=== PATIENT | female | born 1995 | race Caucasian/White ===

== ENCOUNTER → 2020-02-01 11:29 | Outpatient (BNVA) | payer BC, SELFPAY | PROVIDERS: Family Provider Nurse Practitioner; PCP Nurse Practitioner; Visit Provider Nurse Practitioner | DX: Z12.4 Encounter for screening for malignant neoplasm of cervix (principal); Z11.3 Encounter for screening for infections with a predominantly sexual mode of transmission; F43.23 Adjustment disorder with mixed anxiety and depressed mood | CPT/HCPCS: 87491; 87591; 88175 ==

== ENCOUNTER → 2021-02-09 11:20 | Outpatient (BNVA) | payer BC, SELFPAY | PROVIDERS: Family Provider Nurse Practitioner; PCP Nurse Practitioner; Visit Provider Obstetrics & Gynecology | DX: Z12.4 Encounter for screening for malignant neoplasm of cervix (principal); Z30.41 Encounter for surveillance of contraceptive pills | CPT/HCPCS: 81025; 84403; 88175 ==

== ENCOUNTER 2021-05-15 14:15 | Emergency (ER) | payer BC, SELFPAY ==
--- NOTE | 2021-05-15 14:38 | XR_ITS ---
WS: [id number] Exam: XR chest 1V portable [id number] Date/Time of Exam: 05/15/2021 2:38 PM Reason For Exam: chest pain Comparison 02/24/2009. The lungs are clear and fully inflated. Normal cardiomediastinal structures. Mild dextroscoliosis of the T-spine that may be positional. XR/XR chest 1V portable [id number] IMPRESSION: 1. No acute cardiopulmonary finding.
[2021-05-15 15:31] VITALS: BP 131/85; PULSE 98; RESP 18; TEMP 37.4; O2SAT 98; BMI 25.0
[2021-05-15 15:56] LABS: Basophils # 0.1 10^3/uL (0.0-0.1); Basophils % 0.7 %; Eosinophils # 0.1 10^3/uL (0.0-0.8); Hematocrit 45.2 % (37.0-47.0); Lymphocytes # 2.1 10^3/uL (0.8-4.8); Lymphocytes % 31.6 %; Mean Corpuscular HGB Conc 33.2 g/dL (30.0-36.0); Mean Corpuscular Hemoglobin 30.3 pg (28.0-34.0); Mean Corpuscular Volume 91.3 fl (81-99); Mean Platelet Volume 9.8 fL (7.4-10.4); Monocytes # 0.3 10^3/uL (0.2-0.9); Neutrophils # 4.15 10^3/uL (1.8-7.7); Neutrophils % 61.6 %; Nucleated Red Blood Cells % 0 %; Platelet Count 228 10^3/cmm (130-400); Red Blood Count 4.95 10^6/uL (4.1-5.3); Red Cell Distribution Width 12.2 % (12.1-15.1); White Blood Count 6.8 10^3/uL (4.0-10.0)
[2021-05-15 16:35] LABS: Alanine Aminotransferase 11 U/L (0-33); Albumin Level 4.6 g/dL (3.5-5.2); Alkaline Phosphatase 65 IU/L (35-105); Anion Gap 19.9 (5-19); Aspartate Amino Transferase 13 U/L (0-32); Blood Urea Nitrogen 11 mg/dL (6-20); Calcium 9.6 mg/dL (8.5-10.5); Carbon Dioxide 20 mmol/L (22-29); Chloride 102 mmol/L (98-107); Globulin 3.4 g/dL (1.3-4.6); Glomerular Filtration Rate 87.4 mL/min (90-130); Glucose 86 mg/dL (65-115); NT Pro B Type Natriuretic Pept 9 pg/mL (0-125); Osmolality Calculated 285 mOsm/kg (285-295); Potassium 3.9 mmol/L (3.5-5.1); Sodium 138 mmol/L (136-145); Total Bilirubin 0.3 mg/dL (0.15-1.2)
[2021-05-15 16:41] LABS: Troponin T (5th) Once 6 ng/L (0-10)
[2021-05-15 17:39] VITALS: BP 120/81; PULSE 90; RESP 18; O2SAT 100
--- NOTE | 2021-05-15 17:47 | ECG_ITS ---
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 Measurements Intervals [place] Rate: 91 P: 55 MI: 121 QRS: 112 QRSD: 113 T: 65 QT: 353 QTc: 434 Interpretive Statements SINUS RHYTHM WITH SINUS ARRHYTHMIA INDETERMINATE AXIS LEFT POSTERIOR FASCICULAR BLOCK [QRS AXIS > 109, INFERIOR Q] No previous ECG available for comparison Electronically Signed On 05-15-2021 21:59:17 TANK FARM OPERATOR by Adrianna Valencia M.D. [id number]
[2021-05-15 18:02] VITALS: BP 124/85; PULSE 85; RESP 18; O2SAT 99
--- NOTE | 2021-05-15 18:07 | ED_ITS ---
HPI - Chest Pain General: Chief Complaint: Chest Pain Stated Complaint: 1st vaccine 04/27, having chest pains x 1.5wks Time Seen by Provider: 05/15/21 17:49 History of Present Illness: HPI narrative: Patient is a 26-year-old female comes to the ED with chest pain. Patient says she has been having chest pain for approximately 10 days. Patient says she got the first COVID-19 vaccine on April 27. the day after she had COVID-19 vaccination her arm was really sore and she did not feel good for that day, but then was fine the next couple days afterwards. She states the chest pain started approximately 5 days after she had COVID-19 vaccination. Chest pain is constant aching in the center of her chest. It occurs at rest or when she is up and active and exertion does not worsen symptoms. Denies any fever, chills, shortness of breath, cough, upper res piratory symptoms, abdominal pain, nausea/vomiting, bladder or bowel symptoms. Patient endorses having a history of anxiety. Her current chest pain does not seem similar to her past acute anxiety episodes. She also states that she did not want to get the COVID-19 vaccination but her work made it mandatory. Associated symptoms: Deny abdominal pain, dyspnea, fever(s), nausea, palpitations or vomiting Review of Systems Const: Denies: fever(s), chills or fatigue Eyes: Denies: change in vision or eye discomfort ENMT: Denies: throat pain, odynophagia, nasal discharge or nasal congestion Card: Reports: chest pain; Denies: palpitations, edema, swelling of feet/ankles, dyspnea on exertion or orthopnea Resp: Denies: dyspnea, productive cough or non-productive cough GI: Denies: abdominal pain, nausea, vomiting, diarrhea, constipation or hematochezia : Denies: flank pain, dysuria or hematuria Musc: Denies: neck pain, back pain or extremity swelling Skin/Breast: Denies: rash or new lesions Neuro: Denies: headache(s), numbness in extremities or weakness in extremities PFS ED PFSH: Medical History Situational mixed anxiety and depressive disorder Surgical History No history of previous surgery Family History Father Cancer Melanoma Diabetes Grandfather Chronic kidney disease (CKD) Paternal Grandmother Diabetes Paternal Grandfather Diabetes Maternal Mother Hypertension Denies family history of CAD (coronary artery disease) Hyperlipidemia Bleeding disorder Thyroid disease Stroke Social History Marital status: Single Number of children: 0 Current occupational status: employed Current occupation: [employer] Female Reproductive History: Date of last menstrual period: 01/25/20 Physical Exam Const: COMMON NORMALS: no acute distress, patient oriented x3 and alert GENERAL APPEARANCE: cooperative and comfortable HENMT: COMMON NORMALS: normocephalic HEAD & SCALP: normocephalic MOUTH: Normal oral and palatal mucosa present THROAT: posterior oropharynx normal and uvula midline Neck/C-Spine: COMMON NORMALS: supple GENERAL: Yes normal visual inspection Resp: COMMON NORMALS: normal respiratory effort, No retractions, No use of accessory muscles and clear to auscultation bilaterally AUSCULTATION: clear to auscultation bilaterally Cardio: COMMON NORMALS: regular rate, regular rhythm, S1 normal heart sound present, S2 normal heart sound present, No gallops present (Cardio), No clicks present (Cardio), No murmurs present (Cardio) and Peripheral pulses 2+ throughout RATE: regular rate RHYTHM: regular rhythm HEART SOUNDS: S1 normal heart sound present and S2 normal heart sound present PERIPHERAL PULSES: Peripheral pulses 2+ throughout GI: COMMON NORMALS: Normal to inspection, nondistended, normoactive bowel sounds present, Soft to palpation, non-tender and no masses PALPATION: Yes Soft to palpation : COMMON NORMALS: Yes no CVA tenderness BLADDER/KIDNEY EXAM: Yes no CVA tenderness Back/Pelvis: COMMON NORMALS: no CVA tenderness Extremity: COMMON NORMALS: normal to inspection Neuro: COMMON NORMALS: patient oriented x3 and moves all extremities SENSORIUM/ORIENTATION: Yes alert Skin: GENERAL SKIN EXAM: dry skin Course Vital Signs: Vital signs: Vital Signs Temperature 99.3 F 05/15/21 15:31 Pulse Rate 89 05/15/21 19:11 Respiratory Rate 18 05/15/21 19:11 Blood Pressure 118/80 05/15/21 19:11 Pulse Oximetry 98 05/15/21 19:11 MDM - Chest Pain MDM Narrative: Medical decision making narrative: Patient is a 26-year-old female comes to the ED with chest pain. She has been having the chest pain now for approximately 10 days. Chest pain is constant when there she is at rest or up and active. She stated that she did get the COVID-19 vaccinations on April 27 and 5 days later is when her chest pain started. She also has a history of anxiety. Vitals stable. Patient appears nontoxic and in no acute distress. Exam was benign. Labs unremarkable. Troponin negative. BNP-9. EKG showed normal sinus rhythm no ST segment elation depression seen. Chest x-ray showed no acute findings. Patient was diagnosed with chest pain not due to acute coronary syndrome. Her symptoms could likely be from anxiety and I offered medication to treat anxiety and patient refused it. Patient was discharged home and told to follow-up with her PCP in 7 to 10 days reevaluation. Return to ED precautions given. Patient understood agree with plan. Lab Data: Attestation: I reviewed the patient's lab results. Labs: Lab Results 05/15/21 05/15/21 05/15/21 15:45 15:45 15:45 WBC 6.8 10^3/uL 10^3/ uL (4.0-10.0) RBC 4.95 10^6/uL 10^6 /uL (4.1-5.3) Hgb 15.0 g/dL g/dL (11.5-15.3) Hct 45.2 % % (37.0-47.0) MCV 91.3 fl fl (81-99) MCH 30.3 pg pg (28.0-34.0) MCHC 33.2 g/dL g/dL (30.0-36.0) RDW 12.2 % % (12.1-15.1) Plt Count 228 10^3/cmm 10^3 /cmm (130-400) MPV 9.8 fL fL (7.4-10.4) Neut % (Auto) 61.6 % % Lymph % (Auto) 31.6 % % [place] % (Auto) 5.0 % % Eos % (Auto) 1.0 % % Baso % (Auto) 0.7 % % Neut # (Auto) 4.15 10^3/uL 10^3 /uL (1.8-7.7) Lymph # (Auto) 2.1 10^3/uL 10^3/ uL (0.8-4.8) [place] # (Auto) 0.3 10^3/uL 10^3/ uL (0.2-0.9) Eos # (Auto) 0.1 10^3/uL 10^3/ uL (0.0-0.8) Baso # (Auto) 0.1 10^3/uL 10^3/ uL (0.0-0.1) Nucleated RBC % (a uto) 0 % % Nucleated RBCs # 0.0 /100WBC /100W BC Sodium 138 mmol/L mmol/L (136-145) Potassium 3.9 mmol/L mmol/L (3.5-5.1) Chloride 102 mmol/L mmol/L (98-107) Carbon Dioxide 20 mmol/L L mmol/ L (22-29) Anion Gap 19.9 H (5-19) BUN 11 mg/dL mg/dL (6-20) Creatinine 0.8 mg/dL mg/dL (0.5-0.9) GFR Calculation 87.4 mL/min L mL/ min (90-130) Glucose 86 mg/dL mg/dL (65-115) Calculated Osmolal ity 285 mOsm/kg mOsm/ kg (285-295) Calcium 9.6 mg/dL mg/dL (8.5-10.5) Total Bilirubin 0.3 mg/dL mg/dL (0.15-1.2) AST 13 U/L U/L (0-32) ALT 11 U/L U/L (0-33) Alkaline Phosphata se 65 IU/L IU/L (35-105) Troponin T Gen 5 n g/L 6 ng/L ng/L (0-10) NT-Pro-B Natriuret Pep 9 pg/mL pg/mL (0-125) Total Protein 8.0 g/dL g/dL (6.6-8.7) Albumin 4.6 g/dL g/dL (3.5-5.2) Globulin 3.4 g/dL g/dL (1.3-4.6) Imaging Data^: CXR: Attestation: I personally reviewed and interpreted this imaging study as follows: Radiologist's impression: [facility] [facility].[place], [place] [address]HEkh ReportSigned Patient: Jannie Conway #: [id number]: 1995Acct#:[id number]/Sex: 26 / FADM Date: 05/15/21Loc: ERRoom/Bed:Attending Dr: Ordering Provider/Ordering MD: Kayla Brower Date of Service: 05/15/21 Procedure(s): XR chest 1V portable [id number] Accession Number(s): [id number] Report Number: [id number] WS: [id number] Exam: XR chest 1V portable [id number] Date/Time of Exam: 05/15/2021 2:38 PM Reason For Exam: chest pain Comparison 02/24/2009. The lungs are clear and fully inflated. Normal cardiomediastinal structures. Mild dextroscoliosis of the T-spine that may be positional. XR/XR chest 1V portable [id number] IMPRESSION: 1. No acute cardiopulmonary finding. Dictated By:Kochigned By:Kelly Alas Date/Time:05/15/21 1452DD/ 1451 EKG Data^: EKG 1: Attestation: I personally reviewed and interpreted this EKG as follows: EKG interpretation date: 05/15/21 Interpretation: Normal sinus rhythm, 91 bpm, no ST segment elevation or depression seen. Discharge Plan Discharge Patient Disposition: Home Clinical Impression: Chest pain not due to acute coronary syndrome Condition: Stable Prescriptions: New ibuprofen 800 mg tablet 800 mg PO Q8H PRN (Reason: pain) Qty: 20 RF: 0 No Action Ortho-Novum (28) 1-35 mg-mcg tablet 1 tab PO DAILY Qty: 90 RF: 5 levonorgestrel-ethinyl estrad [Aviane] 0.1-20 mg-mcg tablet 1 tab PO DAILY Qty: 28 RF: 12 Discharge Orders: Discharge ED (Routine); Ordered 05/15/21 Ordered By: Hunter Nicole Referrals: Brock Mcqueen, [facility] [Primary Care Provider] - Discharge Diet: Regular Discharge Activity: Resume usual activity Patient Instructions: Noncardiac Chest Pain (ED) Activity Restrictions/Additional Instructions: Follow-up with medical provider as directed in 5 days for reevaluation. Take medications as prescribed. Return to the ER or your medical provider if condition worsens. Please read and understand discharge instructions. Thank you for choosing [facility] for your healthcare needs today. Please realize this is an emergency room and that we are providing you with a medical screening exam and this may not be complete and all inclusive of all the testing and or work up that you may need to determine your ailment or severity of your illness. It is very important that you follow up as instructed or that you return to the Emergency Department should you have concerns or if your condition changes or worsens in any way. Coding Level of Care Code ED Supervisor Nutritional Yeast for Florentin Gallagher Exam Comprehensive
--- NOTE | 2021-05-15 18:57 | ECG_ITS ---
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 Measurements Intervals [place] Rate: 110 P: 73 OK: 104 QRS: -47 QRSD: 102 T: 68 QT: 312 QTc: 424 Interpretive Statements SINUS TACHYCARDIA WITH SHORT OK INTERVAL LEFT AXIS DEVIATION [QRS AXIS < -30] PATTERN CONSISTENT WITH PULMONARY DISEASE INTERPRETATION BASED ON A DEFAULT AGE OF 40 YEARS No previous ECG available for comparison Electronically Signed On 05-15-2021 22:14:17 GYMNASTIC COACH by Adrianna Valencia M.D. [id number]
[2021-05-15 19:11] VITALS: BP 118/80; PULSE 89; RESP 18; O2SAT 98
== END 2021-05-15 19:11 | disposition home or self-care (01) ==
PROVIDERS: Physician Assistant; Emergency Provider Physician Assistant; PCP Nurse Practitioner
DX: R07.9 Chest pain, unspecified (principal)
CPT/HCPCS: 36415; 71045; 80053; 83880; 84484; 85025; 93005; 99283

== ENCOUNTER 2021-09-14 06:43 | Outpatient (CLI) | payer BC, SELFPAY ==
--- NOTE | 2021-09-14 | USR_ITS ---
PROCEDURE INFORMATION: Exam: US Abdomen, Limited; Right Upper Quadrant Exam date and time: 09/14/2021 6:51 AM Age: 26 years old Clinical indication: Abdominal pain; Acute; Additional info: Ruq pain TECHNIQUE: Imaging protocol: US abdomen. Real time ultrasound with image documentation. Limited exam focused on the right upper quadrant. COMPARISON: No relevant prior studies available. FINDINGS: Liver: Normal. No masses. Patent main portal vein with normal direction of flow. Gallbladder: Normal. No gallstones. There is no gallbladder wall thickening. Negative sonographic Mcguire's sign. Common bile duct: Normal. No stones. No dilation. Pancreas: Visualized pancreas is unremarkable. Right kidney: Normal. No mass. No hydronephrosis. US/US abdomen limited [id number] IMPRESSION: No acute findings.
== END 2021-09-14 06:44 | disposition home or self-care (01) ==
LOC: RAD 06:43
PROVIDERS: PCP Nurse Practitioner; Visit Provider Family Medicine
DX: R10.11 Right upper quadrant pain (principal)
CPT/HCPCS: 76705

== ENCOUNTER 2021-10-23 08:55 | Outpatient (CLI) | payer BC, SELFPAY ==
[2021-10-23 09:38] LABS: HCG Qualitative Urine. Negative (Negative)
--- NOTE | 2021-10-23 10:00 | NM_ITS ---
WS: [id number] NUCLEAR MEDICINE HIDA SCAN WITH GALLBLADDER EJECTION FRACTION HISTORY: RIGHT upper quadrant pain, nausea for 3 months. COMPARISON: None available. TECHNIQUE: The patient was intravenously injected with 7.2 mCi of TC99m Mebrofenin. Immediate imaging over the right upper quadrant was followed by 5 minute image and additional images for a total of 60 minutes. Normal uptake of radiotracer throughout the liver. Activity identified in the gallbladder at 30 minutes and well distended by 60 minutes. Activity in the proximal small bowel was seen by 20 minutes. Good washout of the radiotracer from the liver by 60 minutes. The patient then drank 8 ounces of Ensure Plus. Ejection fraction at 60 minutes was 74%. Normal GB ej ection fraction is 35-75%. Post fatty meal symptoms: None. NM/NM hepatobiliary w phar* [id number] IMPRESSION: 1. Normal HIDA scan. 2. Normal gallbladder ejection fraction.
== END 2021-10-23 08:56 | disposition home or self-care (01) ==
PROVIDERS: PCP Family Medicine; Visit Provider Surgery
DX: R10.11 Right upper quadrant pain (principal)
CPT/HCPCS: 78227; 81025; A9537

== ENCOUNTER 2021-10-24 07:59 | Day surgery (SDC) | payer BC, SELFPAY ==
[2021-10-23 07:41] VITALS: BMI 25.8
[2021-10-24 08:25] VITALS: BP 136/87; PULSE 105; RESP 16; TEMP 36.6; O2SAT 99
[2021-10-24 08:36] LABS: OR HCG Qualitative Urine Negative (Negative)
[2021-10-24] MEDS: sodium chloride 0.9% 1,000 ML 30 ML IV (08:45)
--- NOTE | 2021-10-24 09:10 | P.HP_ITS ---
Same Day Surgery H&P Indication for Procedure/HPI DATE OF PROCEDURE: October 24, 2021 CHIEF COMPLAINT/INDICATIONFOR SURGICAL PROCEDURE: Epigastric pain for EGD PREOP DIAGNOSIS: upper gi symptoms PLANNED PROCEDURE: Operation Date: 10/24/21 09:45 Proposed Procedures p EGD 89557/r10.9(Not Applicable) - Sam Gaffney MD Medications/Allergies* Home Medications Medication Instructions Recorded Confirmed Type omeprazole 40 mg capsule,delayed 40 mg PO DAILY 10/23/21 10/24/21 History release Allergies/Adverse Reactions Allergy/AdvReac Type Severity Reaction Status Date / Time No Known Allergies Allergy Verified 10/15/21 08:55 Pertinent History/Comorbid Conditions* Medical History (Updated 05/23/21 @ 00:01 by ) Situational mixed anxiety and depressive disorder Surgical History (Updated 02/01/20 @ 10:58 by CARMEN Wilkes-C) No history of previous surgery Family History (Updated 02/09/21 @ 10:45 by Savannah Waldron LPN) Diabetes Father Grandmother Paternal Grandfather Maternal Chronic kidney disease (CKD) Grandfather Paternal Cancer Father Melanoma Hypertension Mother Denies family history of CAD (coronary artery disease) Hyperlipidemia Bleeding disorder Thyroid disease Stroke Social History Smoking and tobacco status: never smoked Marital status: Single Number of children: 0 Current occupational status: employed Current occupation: [employer] Pertinent Exam Findings alert, oriented x 3 and regular rate & rhythm Recommendations Surgery/Procedure today Coding Level of Care Code Acute Ear Mold Laboratory Technician for Florentin Gallagher
--- NOTE | 2021-10-24 09:31 | P.ANESASSM_ITS ---
Pre-Anesthetic Assessment Height/Weight: Height 1.68 m Weight 72.575 kg Temp Pulse Resp BP Pulse Ox 98 F 105 H 16 136/87 99 10/24/21 08:25 10/24/21 08:25 10/24/21 08:25 10/24/21 08:25 10/24/21 08:25 Preop Diagnosis: upper gi symptoms Operation Date: 10/24/21 09:45 Proposed Procedures p EGD 08506/r10.9(Not Applicable) - Sam Gaffney MD Familial anesthetic complications: None Was Beta Maty taken within 24 hours: N/A Was Clonidine taken within 24 hours: N/A Last intake: Intake Last Liquid Date 10/23/21 Last Liquid Time 22:00 Last Solid Date 10/23/21 Last Solid Time 19:00 Social No alcohol and No tobacco Exam alert, oriented x 3, clear to auscultation bilaterally and regular rate & rhythm Airway Mallampati: Class I Dentition: full Pulmonary None reported CV/HEM None reported None reported Hepatic None reported GI Gastroesophageal Reflux Disease Metabolic None reported Musc/skel None reported Neuropsych None reported Anesthetic Plan ASA status: 1 Anesthesia: MAC Medications/Allergies Home Medications Medication Instructions Recorded Confirmed Last Taken Type norethindrone 1 mg-ethinyl 1 tab PO DAILY #90 tab 02/09/21 10/24/21 10/21/21 Rx estradiol 35 mcg tablet omeprazole 40 mg capsule,delayed 40 mg PO DAILY 10/23/21 10/24/21 10/22/21 History release Allergies Allergy/AdvReac Type Severity Reaction Status Date / Time No Known Allergies Allergy Verified 10/15/21 08:55 [facility] Anesthesia Medical History Situational mixed anxiety and depressive disorder Surgical History No history of previous surgery Family History Father Cancer Melanoma Diabetes Grandfather Chronic kidney disease (CKD) Paternal Grandmother Diabetes Paternal Grandfather Diabetes Maternal Mother Hypertension Denies family history of CAD (coronary artery disease) Hyperlipidemia Bleeding disorder Thyroid disease Stroke Social History Smoking and tobacco status: never smoked Marital status: Single Number of children: 0 Current occupational status: employed Current occupation: [employer] Female Reproductive History Date of last menstrual period: 01/25/20 Data Anesthesia Cardiac Studies: No Data to Display
[2021-10-24 10:26] VITALS: BP 117/68; PULSE 101; RESP 20; TEMP 36.4; O2SAT 98
--- NOTE | 2021-10-24 13:38 | ANE.PACU2 ---
Inpatient post-anesthesia follow up: Airway intact: Yes Vital signs: Temperature 97.6 F Pulse Rate 101 Respiratory Rate 20 Blood Pressure 117/68 Pulse Oximetry 98 Oxygen Delivery Me thod Room Air Oxygen Flow Rate Fraction of Inspir ed Oxygen Hydration adequate: Yes Nausea and vomiting: No Pain level: 1 Mental status: Baseline
== END 2021-10-24 10:57 | disposition home or self-care (01) ==
PROVIDERS: Anesthesiology; PCP Family Medicine; Visit Provider Surgery
PROC: 0DJ08ZZ Inspection of Upper Intestinal Tract, Via Natural or Artificial Opening Endoscopic (ICD-10-PCS; CPT 43235; principal; 2021-10-24 09:45)
DX: R10.9 Unspecified abdominal pain (principal); K29.50 Unspecified chronic gastritis without bleeding; B96.81 Helicobacter pylori [H. pylori] as the cause of diseases classified elsewhere; K21.9 Gastro-esophageal reflux disease without esophagitis
CPT/HCPCS: 43239; 81025; 84703; 88305; J2704; J7030

== ENCOUNTER → 2021-11-28 14:41 | Outpatient (BNVA) | payer BC, SELFPAY | PROVIDERS: PCP Family Medicine; Visit Provider Nurse Practitioner Family | DX: R39.9 Unspecified symptoms and signs involving the genitourinary system (principal); B37.3 Candidiasis of vulva and vagina | CPT/HCPCS: 81000 ==

== ENCOUNTER → 2022-09-26 09:54 | Outpatient (BNVA) | payer BC, SELFPAY | PROVIDERS: PCP Family Medicine; Visit Provider Nurse Practitioner Women's Health | DX: R30.0 Dysuria (principal); N76.0 Acute vaginitis; B96.89 Other specified bacterial agents as the cause of diseases classified elsewhere | CPT/HCPCS: 81000 ==

== ENCOUNTER → 2022-10-24 13:22 | Outpatient (BNVA) | payer BC, SELFPAY | PROVIDERS: PCP Family Medicine; Visit Provider Nurse Practitioner Women's Health | DX: O21.9 Vomiting of pregnancy, unspecified (principal); Z3A.00 Weeks of gestation of pregnancy not specified | CPT/HCPCS: 81025; 84315 ==

== ENCOUNTER 2022-10-27 23:08 | Emergency (ER) | payer BC, SELFPAY ==
[2022-10-27 23:32] VITALS: BP 127/85; PULSE 93; RESP 16; TEMP 36.7; O2SAT 99
[2022-10-27 23:43] VITALS: O2SAT 99
[2022-10-27] MEDS: sodium chloride 0.9% 1,000 ML 999 ML IV (23:45)
--- NOTE | 2022-10-27 23:46 | W.ED.ABDPA2 ---
HPI - Abdominal Pain General: Chief Complaint: Abdominal Pain Stated Complaint: nausea, vomiting blood - 8 weeks Time Seen by Provider: 10/27/22 23:38 History of Present Illness: 27-year-old female comes in with nausea and vomiting. Patient noted some streaks of blood in her emesis which prompted her to come to the ER. Patient appears unwell but not toxic. Patient appears in mild pain. Patient is 8 weeks . Patient reports significant morning sickness with . This is patient's first . Patient denies any chronic medical problems. Patient reports no abnormal vaginal bleeding or discharge. Associated Symptoms: Reports nausea and vomiting; Denies fever(s) Review of Systems General: Reports: 10 or more systems reviewed and unremarkable except in HPI and below Const: Denies: fever(s) Card: Denies: chest pain Resp: Denies: dyspnea GI: Reports: nausea and vomiting : Denies: difficulty voiding or vaginal bleeding Musc: Denies: back pain Skin/Breast: Denies: rash PFSH ED PFSH: Medical History (Updated 10/28/22 @ 00:56 by CARMEN Martinez) Decreased libido Helicobacter pylori gastritis treated with abx; cleared No pertinent past medical history neghx: htn,dm,thyroid,dvt/pe PCP: Dr. Gabriel Situational mixed anxiety and depressive disorder has used medication in the past that made her nauseated or jittery; not currently taking any medication; feels this is more anxiety than depression. Surgical History H/O esophagogastroduodenoscopy (10/24/21) Family History Father Cancer Melanoma Diabetes Grandfather Chronic kidney disease (CKD) Paternal Grandmother Diabetes Paternal Grandfather Diabetes Maternal Mother Hypertension Denies family history of CAD (coronary artery disease) Hyperlipidemia Bleeding disorder Thyroid disease Stroke Social History Do you think of yourself as: Straight/Heterosexual Physical Exam Const: COMMON NORMALS: alert HENMT: COMMON NORMALS: normocephalic HEAD & SCALP: normocephalic THROAT: posterior oropharynx normal Neck/C-Spine: COMMON NORMALS: full ROM Resp: COMMON NORMALS: normal respiratory effort and clear to auscultation bilaterally AUSCULTATION: clear to auscultation bilaterally Cardio: COMMON NORMALS: regular rate and regular rhythm RATE: regular rate RHYTHM: regular rhythm GI: COMMON NORMALS: Soft to palpation and non-tender PALPATION: Yes Soft to palpation Extremity: COMMON NORMALS: normal to inspection Neuro: SENSORIUM/ORIENTATION: Yes alert Skin: COMMON NORMALS: turgor normal GENERAL SKIN EXAM: turgor normal Course Vital Signs: Vital signs: Vital Signs Temperature 98.1 F 10/27/22 23:32 Pulse Rate 72 10/28/22 00:47 Respiratory Rate 18 10/28/22 00:47 Blood Pressure 123/54 10/28/22 00:47 Pulse Oximetry 99 10/28/22 00:47 Oxygen Delivery Me thod Room Air 10/28/22 00:47 MDM - Abdominal Pain Medical Decision Making 27-year-old female comes in today with complaints of abdominal discomfort, and persistent vomiting. On exam abdomen soft with some epigastric tenderness. Posterior pharynx slightly erythematous. Skin is warm and dry. Vital signs are normal. Patient is about 8 weeks . Patient reports problems with nausea and vomiting during . Differential diagnosis includes but not limited to dehydration, gastritis, hyperemesis gravidarum. Laboratory values noted normal hemoglobin hematocrit. Sodium was 135 and potassium was 3.4, anion gap was 18. Urinalysis had ketones and was concentrated at 1.025. Patient was hydrated with 2 L of IV fluid 1 saline and 1 lactated Ringer's. Patient was given famotidine 40 mg, 12-1/2 mg of Benadryl and 25 mg of promethazine for her nausea, and 25 mg of fentanyl for her discomfort in the abdomen. No signs of severe bleeding or distress was noted. Recommended follow-up with primary care or PROCESS DEVELOPMENT MANAGER for further recommendations. Patient was prescribed promethazine suppositories for severe nausea and vomiting, and meclizine 12-1/2 mg every 4-6 hours as needed for nausea and vomiting. Patient reported understanding of care plan and need for follow-up. Lab Data 10/27/22 23:50 10/27/22 23:50 Labs/Radiology: Laboratory Results WBC 11.5 10^3/uL (4.0-10.0) H 04/30/23 23:50 RBC 4.71 10^6/uL (4.1-5.3) 10/27/22 23:50 Hgb 14.4 g/dL (11.5-15.3) 10/27/22 23:50 Hct 42.8 % (37.0-47.0) 10/27/22 23:50 MCV 90.9 fl (81-99) 10/27/22 23:50 MCH 30.6 pg (28.0-34.0) 10/27/22 23:50 MCHC 33.6 g/dL (30.0-36.0) 10/27/22 23:50 RDW 12.4 % (12.1-15.1) 10/27/22 23:50 Plt Count 219 10^3/cmm (130-400) 10/27/22 23:50 MPV 10.0 fL (7.4-10.4) 10/27/22 23:50 Neut % (Auto) 82.2 % 10/27/22 23:50 Lymph % (Auto) 14.0 % 10/27/22 23:50 [place] % (Auto) 2.9 % 10/27/22 23:50 Eos % (Auto) 0.2 % 10/27/22 23:50 Baso % (Auto) 0.4 % 10/27/22 23:50 Neut # (Auto) 9.48 10^3/uL (1.8-7.7) H 10/27/22 23:50 Lymph # (Auto) 1.6 10^3/uL (0.8-4.8) 10/27/22 23:50 [place] # (Auto) 0.3 10^3/uL (0.2-0.9) 10/27/22 23:50 Eos # (Auto) 0.0 10^3/uL (0.0-0.8) 10/27/22 23:50 Baso # (Auto) 0.1 10^3/uL (0.0-0.1) 10/27/22 23:50 Nucleated RBC % (auto) 0 % 10/27/22 23:50 Nucleated RBCs # 0.0 /100WBC 10/27/22 23:50 Sodium 135 mmol/L (136-145) L 10/27/22 23:50 Potassium 3.4 mmol/L (3.5-5.1) L 10/27/22 23:50 Chloride 100 mmol/L (98-107) 10/27/22 23:50 Carbon Dioxide 20 mmol/L (22-29) L 10/27/22 23:50 Anion Gap 18.4 (5-19) 10/27/22 23:50 BUN 6 mg/dL (6-20) 10/27/22 23:50 Creatinine 0.6 mg/dL (0.5-0.9) 10/27/22 23:50 GFR Calculation 120.8 mL/min (90-130) 10/27/22 23:50 Glucose 118 mg/dL (65-115) H 10/27/22 23:50 Calculated Osmolality 279 mOsm/kg (285-295) L 10/27/22 23:50 Calcium 10.2 mg/dL (8.5-10.5) 10/27/22 23:50 Total Bilirubin 0.4 mg/dL (0.15-1.2) 10/27/22 23:50 AST 13 U/L (0-32) 10/27/22 23:50 ALT 15 U/L (0-33) 10/27/22 23:50 Alkaline Phosphatase 58 U/L (35-105) 10/27/22 23:50 Total Protein 7.9 g/dL (6.6-8.7) 10/27/22 23:50 Albumin 4.5 g/dL (3.5-5.2) 10/27/22 23:50 Globulin 3.4 g/dL (1.3-4.6) 10/27/22 23:50 Lipase 19 U/L (13-60) 10/27/22 23:50 Ser , Semi-Qnt 310454.00 mIU/mL 10/27/22 23:50 Urine Color Yellow (Yellow) 10/28/22 00:43 Urine Appearance Hazy (CLEAR) A 10/28/22 00:43 Urine pH 6 (5-7) 10/28/22 00:43 Ur Specific [place] 1.025 (1.005-1.030) 10/28/22 00:43 Urine Protein 1+ (Negative) H 10/28/22 00:43 Urine Glucose (UA) Norm (Normal) 10/28/22 00:43 Urine Ketones 3+ (Negative) H 10/28/22 00:43 Urine Blood Neg (Negative) 10/28/22 00:43 Urine Nitrate Negative (Negative) 10/28/22 00:43 Urine Bilirubin 1+ (Negative) H 10/28/22 00:43 Urine Urobilinogen Norm mg/dL (Negative) 10/28/22 00:43 Ur Leukocyte Esterase Trace (Negative) H 10/28/22 00:43 Urine RBC None /hpf (0-2) 10/28/22 00:43 Urine WBC 0-4 /hpf (0-5) H 10/28/22 00:43 Ur Squamous Epith Cells 5-10 /hpf (0-5) H 10/28/22 00:43 Amorphous Sediment Trace /hpf 10/28/22 00:43 Urine Bacteria Trace /hpf (NONE) 10/28/22 00:43 Urine Mucus 2+ /hpf 10/28/22 00:43 Discharge Plan Discharge Patient Disposition: Home Clinical Impression: Hyperemesis gravidarum with dehydration Condition: Stable Prescriptions: New meclizine 12.5 mg tablet 12.5 mg PO QID PRN (Reason: nausea and vomiting) Qty: 60 0RF promethazine 25 mg suppository 25 mg IN Q6H PRN (Reason: nausea and vomiting) Qty: 12 0RF No Action doxylamine-pyridoxine (vit B6) [Diclegis] 10-10 mg tablet,delayed release (DR/EC) 1 tab PO .COMPLEX Qty: 120 0RF Rx Instructions: take 2 tabs at HS; 1 in the am if needed; 1 at noon if needed metoclopramide HCl [Reglan] 5 mg tablet 5 mg PO .COMPLEX Qty: 60 0RF Rx Instructions: take 1-2 tablets AC and HS prn nausea triamcinolone acetonide 0.1 % ointment 1 applic topical DAILY Qty: 30 3RF Rx Instructions: Use daily as needed for irritation Discharge Orders: Discharge ED (Routine); Ordered 10/28/22 Ordered By: Mauri Jimenez Referrals: Avery Gabriel MD [Primary Care Provider] - Discharge Diet: Advance as tolerated Patient Instructions: Hyperemesis Gravidarum (ED) Activity Restrictions/Additional Instructions: It is important to stay hydrated. Often this can be achieved with frequent sips of water or electrolyte solution. Teaspoon every 5 minutes can maintain hydration until nausea improves. Small frequent meals can often help improve nausea. Use meclizine 12-1/2 mg tablets 1 every 4-6 hours as needed to control nausea. Use promethazine suppositories 1 every 6 hours as needed for severe nausea and vomiting. Follow-up with primary care or PROCESS DEVELOPMENT MANAGER for other suggestions. Return to ER for worsening symptoms such as high fever, severe pain, or new concerns. Coding Level of Care Code ED Scanning Clerk for Florentin Gallagher
[2022-10-28] MEDS: famotidine 20 mg/2 mL INJ 40 MG IVP
[2022-10-28] MEDS: fentaNYL 50 mcg/mL INJ 2mL 25 MCG IVP (00:01)
[2022-10-28] MEDS: diphenhydrAMINE 50 mg/mL SDV 1mL 12.5 MG IVP (00:01)
[2022-10-28 00:06] LABS: Basophils # 0.1 10^3/uL (0.0-0.1); Basophils % 0.4 %; Eosinophils % 0.2 %; Hematocrit 42.8 % (37.0-47.0); Hemoglobin 14.4 g/dL (11.5-15.3); Lymphocytes # 1.6 10^3/uL (0.8-4.8); Mean Corpuscular HGB Conc 33.6 g/dL (30.0-36.0); Mean Corpuscular Hemoglobin 30.6 pg (28.0-34.0); Mean Corpuscular Volume 90.9 fl (81-99); Monocytes # 0.3 10^3/uL (0.2-0.9); Monocytes % 2.9 %; Neutrophils # 9.48 10^3/uL (1.8-7.7); Neutrophils % 82.2 %; Nucleated Red Blood Cells % 0 %; Platelet Count 219 10^3/cmm (130-400); Red Blood Count 4.71 10^6/uL (4.1-5.3); Red Cell Distribution Width 12.4 % (12.1-15.1); White Blood Count 11.5 10^3/uL (4.0-10.0)
[2022-10-28 00:37] LABS: Alanine Aminotransferase 15 U/L (0-33); Albumin Level 4.5 g/dL (3.5-5.2); Alkaline Phosphatase 58 U/L (35-105); Anion Gap 18.4 (5-19); Aspartate Amino Transferase 13 U/L (0-32); Blood Urea Nitrogen 6 mg/dL (6-20); Calcium 10.2 mg/dL (8.5-10.5); Carbon Dioxide 20 mmol/L (22-29); Chloride 100 mmol/L (98-107); Creatinine Clr Calc Pharmacy 144.9238; Globulin 3.4 g/dL (1.3-4.6); Glomerular Filtration Rate 120.8 mL/min (90-130); Glucose 118 mg/dL (65-115); Lipase 19 U/L (13-60); Osmolality Calculated 279 mOsm/kg (285-295); Potassium 3.4 mmol/L (3.5-5.1); Sodium 135 mmol/L (136-145); Total Bilirubin 0.4 mg/dL (0.15-1.2); Total Protein 7.9 g/dL (6.6-8.7)
[2022-10-28 00:47] VITALS: BP 123/54; PULSE 72; RESP 18; O2SAT 99
[2022-10-28 01:03] LABS: Bilirubin Urine 1+ (Negative); Blood Urine Neg (Negative); Glucose Urine UA Norm (Normal); Ketones Urine 3+ (Negative); Leukocyte Esterase Urine Trace (Negative); Nitrate Urine Negative (Negative); Protein Urine 1+ (Negative); Specific Gravity, Urine 1.025 (1.005-1.030); Urine Appearance Hazy (CLEAR); Urine Color Yellow (Yellow); Urobilinogen Urine Norm (Negative); pH Urine 6 (5-7)
[2022-10-28 01:04] LABS: Add Urine Culture? No; Add Urine Microscopic? YES; Amorphous Sediment Urine TRACE /hpf; Bacteria Urine TRACE /hpf; Mucus Urine 2+ /hpf; WBC Urine 0-4 /hpf (0-5)
[2022-10-28] MEDS: promethazine 25 mg/mL SDV 1 mL IM (01:12)
[2022-10-28] MEDS: lactated ringers 1,000 ML 999 ML IV (01:26)
[2022-10-28 02:12] VITALS: BP 123/54; RESP 16; O2SAT 100
== END 2022-10-28 02:15 | disposition home or self-care (01) ==
PROVIDERS: Emergency Provider Nurse Practitioner Family; PCP Family Medicine
DX: O21.0 Mild hyperemesis gravidarum (principal); Z3A.08 8 weeks gestation of pregnancy; O26.891 Other specified pregnancy related conditions, first trimester; E86.0 Dehydration
CPT/HCPCS: 80053; 81001; 83690; 84702; 85025; 96361; 96372; 96374; 96375; 99284; J1200; J2550; J3010; J3490; J7030; J7120

== ENCOUNTER → 2022-11-15 12:53 | Outpatient (BNVA) | payer BC, SELFPAY | PROVIDERS: PCP Family Medicine; Visit Provider Obstetrics & Gynecology | DX: Z34.00 Encounter for supervision of normal first pregnancy, unspecified trimester (principal) | CPT/HCPCS: 80307; 84315; 87086 ==

== ENCOUNTER → 2022-11-18 13:00 | Outpatient (BNVA) | payer BC, SELFPAY | PROVIDERS: PCP Family Medicine; Visit Provider Obstetrics & Gynecology | DX: Z34.00 Encounter for supervision of normal first pregnancy, unspecified trimester (principal) | CPT/HCPCS: 84443; 85027; 86592; 86762; 86803; 86850; 86900; 87340; 87806 ==

== ENCOUNTER → 2022-11-29 09:52 | Outpatient (BNVA) | payer BC, SELFPAY | PROVIDERS: PCP Family Medicine; Visit Provider Obstetrics & Gynecology | DX: Z34.00 Encounter for supervision of normal first pregnancy, unspecified trimester (principal); R82.90 Unspecified abnormal findings in urine | CPT/HCPCS: 84315; 87086; 87491; 87591; 87661; 88175 ==

== ENCOUNTER → 2022-12-20 11:36 | Outpatient (BNVA) | payer BC, SELFPAY | PROVIDERS: PCP Family Medicine; Visit Provider Obstetrics & Gynecology | DX: Z34.00 Encounter for supervision of normal first pregnancy, unspecified trimester (principal) | CPT/HCPCS: 84443 ==

== ENCOUNTER → 2023-02-17 12:53 | Outpatient (BNVA) | payer BC, SELFPAY | PROVIDERS: PCP Family Medicine; Visit Provider Obstetrics & Gynecology | DX: Z34.00 Encounter for supervision of normal first pregnancy, unspecified trimester (principal) | CPT/HCPCS: 76816; 84315 ==

== ENCOUNTER → 2023-03-17 13:50 | Outpatient (BNVA) | payer BC, SELFPAY | PROVIDERS: PCP Family Medicine; Visit Provider Obstetrics & Gynecology | DX: Z34.00 Encounter for supervision of normal first pregnancy, unspecified trimester (principal) | CPT/HCPCS: 82950; 84315; 85025 ==

== ENCOUNTER → 2023-03-20 11:05 | Outpatient (BNVA) | payer BC, SELFPAY | PROVIDERS: PCP Family Medicine; Visit Provider Obstetrics & Gynecology | DX: Z34.02 Encounter for supervision of normal first pregnancy, second trimester (principal) | CPT/HCPCS: 76816 ==

== ENCOUNTER → 2023-04-03 08:08 | Outpatient (BNVA) | payer BC, SELFPAY | PROVIDERS: PCP Family Medicine; Visit Provider Obstetrics & Gynecology | DX: Z34.00 Encounter for supervision of normal first pregnancy, unspecified trimester (principal) | CPT/HCPCS: 82951; 82952 ==

== ENCOUNTER → 2023-04-30 09:29 | Outpatient (BNVA) | payer BC, SELFPAY | PROVIDERS: PCP Family Medicine; Visit Provider Obstetrics & Gynecology | DX: O24.419 Gestational diabetes mellitus in pregnancy, unspecified control (principal); Z3A.35 35 weeks gestation of pregnancy | CPT/HCPCS: 76815; 76819 ==

== ENCOUNTER → 2023-05-05 12:57 | Outpatient (BNVA) | payer BC, SELFPAY | PROVIDERS: PCP Family Medicine; Visit Provider Obstetrics & Gynecology | DX: Z34.00 Encounter for supervision of normal first pregnancy, unspecified trimester (principal) | CPT/HCPCS: 76819; 84315 ==

== ENCOUNTER 2023-05-09 12:23 | Outpatient (CLI) | payer BC, SELFPAY ==
[2023-05-09] VITALS (8 sets, daily range): BP systolic 118–134; BP diastolic 69–74; PULSE 117–144; RESP 18; TEMP 36.3; O2SAT 96–98; BMI 31.8
== END 2023-05-09 13:05 | disposition home or self-care (01) ==
LOC: OPOB 12:23 → OBGYN 12:24
PROVIDERS: PCP Family Medicine; Visit Provider Obstetrics & Gynecology
DX: O24.419 Gestational diabetes mellitus in pregnancy, unspecified control (principal); Z3A.00 Weeks of gestation of pregnancy not specified
CPT/HCPCS: 59025

== ENCOUNTER → 2023-05-12 12:54 | Outpatient (BNVA) | payer BC, SELFPAY | PROVIDERS: PCP Family Medicine; Visit Provider Obstetrics & Gynecology | DX: O24.419 Gestational diabetes mellitus in pregnancy, unspecified control (principal); Z3A.36 36 weeks gestation of pregnancy | CPT/HCPCS: 76819; 84315; 87081 ==

== ENCOUNTER 2023-05-16 12:17 | Outpatient (CLI) | payer BC, SELFPAY ==
[2023-05-16 12:15] VITALS: BMI 31.9
[2023-05-16 12:27] VITALS: BP 140/74; PULSE 117
[2023-05-16 12:47] VITALS: BP 125/70; PULSE 107
[2023-05-16 12:52] VITALS: BP 125/70; PULSE 107
== END 2023-05-16 12:52 | disposition home or self-care (01) ==
LOC: OPOB 12:18 → OBGYN 12:19
PROVIDERS: Absent Provider Obstetrics & Gynecology; PCP Family Medicine; Visit Provider Obstetrics & Gynecology
DX: O24.419 Gestational diabetes mellitus in pregnancy, unspecified control (principal); Z3A.00 Weeks of gestation of pregnancy not specified
CPT/HCPCS: 59025; 99211

== ENCOUNTER → 2023-05-20 15:33 | Outpatient (BNVA) | payer BC, SELFPAY | PROVIDERS: PCP Family Medicine; Visit Provider Obstetrics & Gynecology | DX: Z34.00 Encounter for supervision of normal first pregnancy, unspecified trimester (principal) | CPT/HCPCS: 76819; 84315 ==

== ENCOUNTER → 2023-05-26 12:42 | Outpatient (BNVA) | payer BC, SELFPAY | PROVIDERS: PCP Family Medicine; Visit Provider Obstetrics & Gynecology | DX: Z34.03 Encounter for supervision of normal first pregnancy, third trimester (principal) | CPT/HCPCS: 76815; 76819 ==

== ENCOUNTER 2023-05-26 13:50 | Outpatient (CLI) | payer BC, SELFPAY ==
[2023-05-26 14:02] VITALS: BP 143/76; PULSE 113
[2023-05-26 14:03] VITALS: RESP 16; BMI 31.6
[2023-05-26 14:23] VITALS: BP 138/74; PULSE 100
== END 2023-05-26 14:29 | disposition home or self-care (01) ==
LOC: OPOB 13:54 → OBGYN 13:55
PROVIDERS: PCP Family Medicine; Visit Provider Obstetrics & Gynecology
DX: O24.419 Gestational diabetes mellitus in pregnancy, unspecified control (principal); Z3A.00 Weeks of gestation of pregnancy not specified
CPT/HCPCS: 59025; 84315; 99211

== ENCOUNTER → 2023-06-02 15:29 | Outpatient (BNVA) | payer BC, SELFPAY | PROVIDERS: PCP Family Medicine; Visit Provider Obstetrics & Gynecology | DX: Z34.03 Encounter for supervision of normal first pregnancy, third trimester (principal) | CPT/HCPCS: 76819 ==

== ENCOUNTER 2023-06-03 08:19 | Inpatient (IN) | payer BC, SELFPAY ==
[2023-06-03] VITALS (41 sets, daily range): BP systolic 113–164; BP diastolic 57–88; PULSE 72–148; RESP 16; TEMP 36.1–36.7; O2SAT 99; BMI 31.9
[2023-06-03 08:35] LABS: Glucose Point of Care 113 mg/dL (70-110)
[2023-06-03 08:48] LABS: Basophils % 0.4 %; Eosinophils # 0.1 10^3/uL (0.0-0.8); Hematocrit 40.5 % (36-47); Lymphocytes # 2.2 10^3/uL (0.8-4.8); Lymphocytes % 30.1 %; Mean Corpuscular HGB Conc 33.6 g/dL (30-55); Mean Corpuscular Hemoglobin 30.6 pg (27-33); Mean Platelet Volume 10.6 fL (7.4-10.4); Monocytes # 0.4 10^3/uL (0.2-0.9); Monocytes % 5.9 %; Neutrophils # 4.51 10^3/uL (1.8-7.7); Neutrophils % 62.3 %; Nucleated Red Blood Cells % 0 %; Platelet Count 189 10^3/cmm (157-399); Red Blood Count 4.45 10^6/uL (3.85-5.65); Red Cell Distribution Width 13.2 % (12.1-15.1); White Blood Count 7.24 10^3/uL (3.29-11.43)
--- NOTE | 2023-06-03 08:50 | P.HP_ITS ---
Providers/Chief Complaint 2 Admitting Physician: Victor M Rangel MD Primary MACHINE OPERATOR SLITTER TECHNICIAN: Victor M Rangel MD Primary Care Provider: Avery Gabriel MD Chief Complaint: INDUCTION OF LABOR FOR GDM HPI MACHINE OPERATOR SLITTER TECHNICIAN History of Present Illness 28 y.o. G1 EDC? June 07, 2023 At 39 w 3 d With GDM, on metformin 500 mg BID Now admitted for induction of labor Meds:? levothyroxine ? metformin Present Details : 1 Labs Rubella: Immune RPR: Negative GBS: Negative Medications/Allergies Home Medications Medication Instructions Recorded Confirmed Last Taken Type PNV 153-FA 400 mcg-om3 35 mg-dha 1 tab PO DAILY 10/31/22 06/02/23 06/02/23 20:00 History 25 mg-epa 5 mg-fish oil chew tablet ( Gummies) ondansetron HCl 4 mg tablet 4 mg PO Q6H #30 tabs 11/15/22 06/02/23 Unknown Rx levothyroxine 100 mcg tablet 100 mcg PO DAILY #90 tabs 11/18/22 06/02/23 06/02/23 20:00 Rx blood sugar diagnostic (Accu-Chek #10 ea 04/08/23 06/02/23 Unknown Rx Guide test strips) blood-glucose meter (Accu-Chek #1 ea 04/08/23 06/02/23 Unknown Rx Guide Glucose Meter) lancets 31 gauge (Comfort Touch #100 ea 04/08/23 06/02/23 Unknown Rx Ultra Thin Lancets) metformin 500 mg tablet See Rx Instructions .Route 05/28/23 06/02/23 06/02/23 20:00 Rx .COMPLEX #30 tabs Allergies Allergy/AdvReac Type Severity Reaction Status Date / Time No Known Allergies Allergy Verified 06/02/23 16:04 PFSH MACHINE OPERATOR SLITTER TECHNICIAN 2 PFSH: Medical History Decreased libido Helicobacter pylori gastritis treated with abx; cleared No pertinent past medical history neghx: htn,dm,thyroid,dvt/pe PCP: Dr. Gabriel Situational mixed anxiety and depressive disorder has used medication in the past that made her nauseated or jittery; not currently taking any medication; feels this is more anxiety than depression. Surgical History H/O esophagogastroduodenoscopy (10/24/21) Family History Father Cancer Melanoma Diabetes Grandfather Chronic kidney disease (CKD) Paternal Grandmother Diabetes Paternal Grandfather Diabetes Maternal Mother Hypertension Denies family history of CAD (coronary artery disease) Hyperlipidemia Bleeding disorder Thyroid disease Stroke History History History 2 1 Term 0 Miscarriages/Ectopic Living Children Care JENNIFER Calculator 2 Estimated Delivery Date Method Current WG Current Estimate 06/07/23 LMP (Certain) 39w 4d Other Estimates 06/13/23 Ultrasound #1 38w 5d Specific Issues/Plans * N/V * ANXIETY Vitals/I&O/Wt Last Vital Signs Temp 97.5 F L 06/04/23 00:37 Pulse 80 06/04/23 07:18 Resp 16 06/03/23 08:35 BP 131/72 06/04/23 07:18 Pulse Ox 99 06/03/23 22:10 O2 Del Method Room Air 06/04/23 07:20 06/03/23 06/04/23 06/04/23 22:59 06:59 14:59 Intake Total 1385.467 / 1385.467 144.217 / 1529.684 Balance 1385.467 / 1385.467 144.217 / 1529.684 Weight last 48 hrs Weight 198 lb Weight 198 lb Physical Exam 2 Narrative: Weight? 196 ?lbs;? 5?6? VS? normal Comfortable, awake, alert Lungs:? clear Cor:? RRR Abd:? nontender FH? 37? cm,? cephalic Cervix:? 1 cm / 75% / -3 / posterior Ext:? normal External monitor:? heart tracing good variability,? + accelerations Urinary Catheter Management: Alejandre: Cath Placed During This Visit: yes Reason for Continuing Indwelling Catheter: Accurate Measurement of Urinary Output in Critically Ill Patients Urinary Catheter Date of Insertion: 06/03/23 Urinary Catheter Time of Insertion: 22:58 Data 06/03/23 08:20 Results Labs OB ([facility]): 2 Obstetrics US 03/20/23 Obstetrics US/Biophysical Profile Blood Type A Positive 06/03/23 Antibody Screen Negative 06/03/23 Hct 40.5 % (36-47) 06/03/23 Hgb 13.60 g/dL (11.27-16.99) 06/03/23 Rho(D) Type Rh positive 06/03/23 Plt Count 189 10^3/cmm (157-399) 06/03/23 Hep Bs Antigen Non-reactive (Nonreactive) 11/18/22 Hepatitis C Antibody Non-reactive (Nonreactive) 11/18/22 Rubella IgG Antibody 435.1 IU/mL (0.0-10.0) H 11/18/22 RPR Nonreactive (Nonreactive) 11/18/22 HIV 1&2 Ab & HIV 1 Ag Non-reactive (Non-Reactiv) 11/18/22 TSH 1.89 uIU/mL (0.27-4.20) 12/20/22 C.trachomatis RNA (TMA) Not detected (NOT DETECTED) N.gonorrhoeae RNA (TMA) Not detected (NOT DETECTED) T. vaginalis Amp RNA Not detected (NOT DETECTED) 11/29/22 Chlamydia/GC Comment See note 11/29/22 Gest Glucose Tolerance mg/dL 04/03/23 Ser , Semi-Qnt 803320.00 mIU/mL 10/27/22 HCG, Qual Positive (Negative) H 10/24/22 Urine Opiates Screen Negative ng/mL (Negative) 11/15/22 Ur Barbiturates Screen Negative ng/mL (Negative) 11/15/22 Ur Phencyclidine Scrn Negative ng/mL (Negative) 11/15/22 Ur Amphetamines Screen Negative ng/mL (Negative) 11/15/22 U Benzodiazepines Scrn Negative ng/mL (Negative) 11/15/22 Urine Cocaine Screen Negative ng/mL (Negative) 11/15/22 U Marijuana (THC) Screen Negative ng/mL (Negative) 11/15/22 Micro Urine Specimen 11/29/22 Pap Smear Interpret See note 11/29/22 A&P Assessment and plan (1) Supervision of normal first : 39 w 3 d (2) Gestational diabetes: Admit for induction of labor Plan Cytotec 25 ug intravaginal Attestations 2 Medical Necessity Statement*: patient at 39 w 3 d with gestational diabetes on metformin, admitted for labor induction Coding Level of Care Code Acute Code for Chg Fwd Diagnoses Supervision of normal first Z34.00 Gestational diabetes O24.419 Time Spent (min) 30
[2023-06-03] MEDS: miSOPROStol 100 mcg tablet 25 MCG VAGINAL (08:54)
--- NOTE | 2023-06-03 13:45 | P.PN_ITS ---
CHAINSTITCH TUNNEL ELASTIC OPERATOR Subjective 2 Subjective: Interval history: June 03, 2023, 1345 Fetus reassuring Feeling UCs, 2-3 / 10 mins Cx: 1 cm / -3 / posterior Labor: Station: +1 Amniotic Membrane Status: Ruptured Monitor Mode: External Contraction Pattern: Regular Vitals/I&O/Wt Last Vital Signs Temp 97.5 F L 06/04/23 19:32 Pulse 88 06/05/23 00:52 Resp 16 06/04/23 08:35 BP 132/87 06/05/23 00:52 Pulse Ox 98 06/04/23 23:57 O2 Del Method Room Air 06/04/23 08:50 06/04/23 06/04/23 06/05/23 14:59 22:59 06:59 Intake Total 108.516 / 552.332 1667 / 1208.516 120.133 / 1328.649 Output Total 1999 Balance -1891.484 / -0178.305 6653 / -791.484 120.133 / -671.351 Weight last 48 hrs Weight 198 lb Weight 198 lb Physical Exam 2 Urinary Catheter Management: Alejandre: Cath Placed During This Visit: yes Reason for Continuing Indwelling Catheter: Accurate Measurement of Urinary Output in Critically Ill Patients Urinary Catheter Date of Insertion: 06/03/23 Urinary Catheter Time of Insertion: 22:58 Data 06/03/23 08:20 A&P Assessment and plan (1) Supervision of normal first : 39 w 3 d (2) Gestational diabetes: admitted for induction of labor received one dose of cytotec 25 ug intravaginal Attestations 2 Medical Necessity Statement*: patient at 39 w 3 d, with gestational diabetes, admitted for labor induction Coding Level of Care Code Acute Code for Chg Fwd Diagnoses Supervision of normal first Z34.00 Gestational diabetes O24.419 Time Spent (min) 20
[2023-06-03] MEDS: oxytocin 30 UNIT/500 ML BAG IV (18:20)
[2023-06-03] MEDS: dextrose 5%-lactated ringers 1,000 ML 125 ML IV (18:20)
[2023-06-03] MEDS: lactated ringers 1,000 ML 999 ML IV (21:00)
[2023-06-03] MEDS: ROPivacaine syringe 100 MG/50 ML SYRINGE 10 MG EPIDURAL (22:15)
--- NOTE | 2023-06-03 22:15 | P.ANESASSM_ITS ---
Pre-Anesthetic Assessment Height/Weight: Height 1.68 m Weight 89.811 kg Temp Pulse Resp BP Pulse Ox O2 Del Method 97.9 F 97 16 147/69 99 Room Air 06/03/23 18:23 06/03/23 22:10 06/03/23 08:35 06/03/23 22:10 06/03/23 22:10 06/03/23 08:00 epidural Familial anesthetic complications: none Was Beta Maty taken within 24 hours: N/A Was Clonidine taken within 24 hours: N/A Social No alcohol and No tobacco Exam alert and oriented x 3 Airway Submandibular: within normal limits Cervical ROM: within normal limits Mallampati: Class II Dentition: full History/ROS No significant history except as noted Metabolic Diabetes Mellitus (gestational only) Anesthetic Plan ASA status: 2 Anesthesia: Anesthesia Evaluation and Regional (specify below) Risk of > 500 ml blood loss (7ml/kg in children): No Medications/Allergies Home Medications Medication Instructions Recorded Confirmed Last Taken Type PNV 153-FA 400 mcg-om3 35 mg-dha 1 tab PO DAILY 10/31/22 06/02/23 06/02/23 20:00 History 25 mg-epa 5 mg-fish oil chew tablet ( Gummies) ondansetron HCl 4 mg tablet 4 mg PO Q6H #30 tabs 11/15/22 06/02/23 Unknown Rx levothyroxine 100 mcg tablet 100 mcg PO DAILY #90 tabs 11/18/22 06/02/23 06/02/23 20:00 Rx blood sugar diagnostic (Accu-Chek #10 ea 04/08/23 06/02/23 Unknown Rx Guide test strips) blood-glucose meter (Accu-Chek #1 ea 04/08/23 06/02/23 Unknown Rx Guide Glucose Meter) lancets 31 gauge (Comfort Touch #100 ea 04/08/23 06/02/23 Unknown Rx Ultra Thin Lancets) metformin 500 mg tablet See Rx Instructions .Route 05/28/23 06/02/23 06/02/23 20:00 Rx .COMPLEX #30 tabs Allergies Allergy/AdvReac Type Severity Reaction Status Date / Time No Known Allergies Allergy Verified 06/02/23 16:04 Current Medications Generic Name Dose Route Start Last Admin Trade Name Freq PRN Reason Stop Dose Admin Dextrose/Lactated Ringer's 1,000 mls @ 125 mls/hr 06/03/23 08:45 06/03/23 18:20 Dextrose 5%-Lactated Ringers IV 125 mls/hr .Q8H CAROLEE Administration Oxytocin 30 unit in 500 mls @ 1 mls/hr 06/03/23 17:45 06/03/23 19:48 Pitocin IV 6 milliunit/min .Q24H CAROLEE 6 mls/hr Titration Protocol 1 MILLIUNIT/MIN Lactated Ringer's 1,000 mls @ 999 mls/hr 06/03/23 20:47 06/03/23 21:00 Lactated Ringers IV 999 mls/hr .Q1H1M PRN Administration See label comments PFSH Anesthesia Medical History Decreased libido Helicobacter pylori gastritis treated with abx; cleared No pertinent past medical history neghx: htn,dm,thyroid,dvt/pe PCP: Dr. Gabriel Situational mixed anxiety and depressive disorder has used medication in the past that made her nauseated or jittery; not currently taking any medication; feels this is more anxiety than depression. Surgical History H/O esophagogastroduodenoscopy (10/24/21) Family History Father Cancer Melanoma Diabetes Grandfather Chronic kidney disease (CKD) Paternal Grandmother Diabetes Paternal Grandfather Diabetes Maternal Mother Hypertension Denies family history of CAD (coronary artery disease) Hyperlipidemia Bleeding disorder Thyroid disease Stroke Female Reproductive History : 1 Data Anesthesia 06/03/23 08:20 Short CBC 06/03/23 Range/Units 08:20 WBC 7.24 (3.29-11.43) 10^3/uL Hgb 13.60 (11.27-16.99) g/dL Hct 40.5 (36-47) % MCV 91.0 (85-98) fl Plt Count 189 (157-399) 10^3/cmm Neut % (Auto) 62.3 % Neut # (Auto) 4.51 (1.8-7.7) 10^3/uL Blood Bank 06/03/23 08:20 Blood Type A Positive Rho(D) Type Rh positive Antibody Screen Negative Cardiac Studies: 2 No Data to Display Anesthesia Procedures Epidural Time Out Performed: Yes Consents Signed: Procedure Consent Consent: from patient, risks and benefits reviewed and patient agrees to proceed Lumbar Level: L3-L4 Epidural position: sitting Epidural procedure: sterile prep of area, 1% lidocaine to numb the area, 18 g needle, negative for paresthesia passed, neg for paresthesia, test dose given, 1.5% xylocaine 1:200k epi, placed PCEA, no systemic response, sterile dressing applied, L.U.D. no apparent complications and 0.2% Ropiavacaine @ mls/hr (10) Additional Comments: GUSTAVO at 5, taped at 12 at skin. negative blood/CSF upon apsiration.
[2023-06-03] MEDS: lactated ringers 1,000 ML 125 ML IV (22:17)
[2023-06-04] VITALS (223 sets, daily range): BP systolic 100–172; BP diastolic 53–101; PULSE 42–160; RESP 16; TEMP 35.2–36.6; O2SAT 91–100
--- NOTE | 2023-06-04 02:05 | P.PN_ITS ---
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516 / 978.178 2804 / 1208.516 120.133 / 1328.649 Output Total 1999 Balance -1891.484 / -7409.470 2947 / -791.484 120.133 / -671.351 Weight last 48 hrs Weight 198 lb Weight 198 lb Physical Exam 2 Urinary Catheter Management: Alejandre: Cath Placed During This Visit: yes Reason for Continuing Indwelling Catheter: Accurate Measurement of Urinary Output in Critically Ill Patients Urinary Catheter Date of Insertion: 06/03/23 Urinary Catheter Time of Insertion: 22:58 Data 06/03/23 08:20 A&P Assessment and plan (1) Supervision of normal first : 39 w 4 d (2) Gestational diabetes: admitted for induction of labor Attestations 2 Medical Necessity Statement*: patient at 39 w 4 d, with gestational diabetes, admitted for induction of labor Coding Level of Care Code Acute Code for Chg Fwd Diagnoses Supervision of normal first Z34.00 Gestational diabetes O24.419 Time Spent (min) 20
[2023-06-04] MEDS: ROPivacaine syringe 100 MG/50 ML SYRINGE 10 MG EPIDURAL ×8 (02:11→23:35)
[2023-06-04] MEDS: lactated ringers 1,000 ML 999 ML IV (02:58)
--- NOTE | 2023-06-04 04:20 | P.PN_ITS ---
DIRECT RESPONSE CONSULTANT Subjective 2 Subjective: Interval history: June 04, 2023, 0420 Had episode of late decelerations Pitocin was turned off Presently fetus reassuring Cx: 2-3 cm / -3 / anterior Labor: Station: +1 Amniotic Membrane Status: Ruptured Monitor Mode: External Contraction Pattern: Regular Vitals/I&O/Wt Last Vital Signs Temp 97.5 F L 06/04/23 19:32 Pulse 95 06/05/23 01:22 Resp 16 06/04/23 08:35 BP 146/87 06/05/23 01:22 Pulse Ox 98 06/04/23 23:57 O2 Del Method Room Air 06/04/23 08:50 06/04/23 06/04/23 06/05/23 14:59 22:59 06:59 Intake Total 108.516 / 795.043 8917 / 1208.516 120.133 / 1328.649 Output Total 1999 / 1999 800 / 2800 300 / 3100 Balance -1891.484 / -1891.484 300 / -1591.484 -179.867 / -1771.351 Weight last 48 hrs Weight 198 lb Weight 198 lb Physical Exam 2 Urinary Catheter Management: Alejandre: Cath Placed During This Visit: yes, but has since been removed by the nurse Reason for Continuing Indwelling Catheter: Decision to DC Catheter Urinary Catheter Date of Insertion: 06/03/23 Urinary Catheter Time of Insertion: 22:58 Date Urinary Catheter Removed: 06/04/23 Time Urinary Catheter Discontinued: 21:34 Data 06/03/23 08:20 A&P Assessment and plan (1) Supervision of normal first : 39 w 4 d (2) Gestational diabetes: admitted for labor induction Attestations 2 Medical Necessity Statement*: patient at 39 w 4 d, with gestational diabetes, admitted for induction of labor Coding Level of Care Code Acute Code for Chg Fwd Diagnoses Supervision of normal first Z34.00 Gestational diabetes O24.419 Time Spent (min) 20
[2023-06-04] MEDS: dextrose 5%-lactated ringers 1,000 ML 125 ML IV ×2 (10:09→18:12)
--- NOTE | 2023-06-04 10:10 | P.PN_ITS ---
DIRECTOR MEDIA Subjective 2 Subjective: Interval history: June 04, 2023, 1010 Fetus reassuring Comfortable with epidural Cx: 2 cm / 90% / -2 AROM, clear fluid Re-start Pitocin per protocol Labor: Station: +1 Amniotic Membrane Status: Ruptured Monitor Mode: External Contraction Pattern: Regular Vitals/I&O/Wt Last Vital Signs Temp 97.5 F L 06/04/23 19:32 Pulse 98 06/05/23 01:37 Resp 16 06/04/23 08:35 BP 151/92 06/05/23 01:37 Pulse Ox 98 06/04/23 23:57 O2 Del Method Room Air 06/04/23 08:50 06/04/23 06/04/23 06/05/23 14:59 22:59 06:59 Intake Total 108.516 / 256.999 2214 / 1208.516 120.133 / 1328.649 Output Total 1999 / 1999 800 / 2800 300 / 3100 Balance -1891.484 / -1891.484 300 / -1591.484 -179.867 / -1771.351 Weight last 48 hrs Weight 198 lb Weight 198 lb Physical Exam 2 Urinary Catheter Management: Alejandre: Cath Placed During This Visit: yes, but has since been removed by the nurse Reason for Continuing Indwelling Catheter: Decision to DC Catheter Urinary Catheter Date of Insertion: 06/03/23 Urinary Catheter Time of Insertion: 22:58 Date Urinary Catheter Removed: 06/04/23 Time Urinary Catheter Discontinued: 21:34 Data 06/03/23 08:20 A&P Assessment and plan (1) Supervision of normal first : 39 w 4 d (2) Gestational diabetes: admitted for induction of labor Attestations 2 Medical Necessity Statement*: patient at 39 w 4 d with gestational diabetes, admitted for induction of labor Coding Level of Care Code Acute Code for Chg Fwd Diagnoses Supervision of normal first Z34.00 Gestational diabetes O24.419 Time Spent (min) 20
--- NOTE | 2023-06-04 13:17 | PM.MISC ---
Miscellaneous Note Purpose of Documentation: Epidural Bolus Note: Epidural bolused with 100mcg fentanyl and 5mls of 2% lido.
[2023-06-04] MEDS: hyDROXYzine 25 mg Capsule 50 MG PO (15:40)
--- NOTE | 2023-06-04 16:50 | PM.MISC ---
Miscellaneous Note Purpose of Documentation: Epidural Bolus Note: Patient c/o of cont'd discomfort, bolused with 5mls of 0.25% bup. (@ approx 1500)
--- NOTE | 2023-06-04 16:51 | P.MISC_ITS ---
Miscellaneous Note Purpose of Documentation: Epidural replaced Note: Previous bolus (0.25% bup at 1500) not helpful, choice made to replace epidural. Sitting position, sterile prep, drape and glove, GUSTAVO @ 5cm, cath @ 10cm, test dose of 100mcg fent and 5mls of 2% lido was ++. Awaited symptoms to [facility] and retested with 1.5%lido/epi and still++, catheter pulled back 3cm to 7cm with negative test dose. Slowly bolused 5mls of 0.2% rop with no issues pump start ed.
[2023-06-04] MEDS: ondansetron 2 mg/ML SDV 2 mL 4 MG IVP (16:55)
--- NOTE | 2023-06-04 20:10 | P.PN_ITS ---
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 Subjective: Interval history: June 04, [id number] Fetus reassuring Cx: complete / -2 station Will allow fetus to descend Labor: Station: +1 Amniotic Membrane Status: Ruptured Monitor Mode: External Contraction Pattern: Regular Vitals/I&O/Wt Last Vital Signs Temp 97.5 F L 06/04/23 19:32 Pulse 98 06/05/23 01:37 Resp 16 06/04/23 08:35 BP 151/92 06/05/23 01:37 Pulse Ox 98 06/04/23 23:57 O2 Del Method Room Air 06/04/23 08:50 06/04/23 06/04/23 06/05/23 14:59 22:59 06:59 Intake Total 108.516 / 047.621 7666 / 1208.516 120.133 / 1328.649 Output Total 1999 / 1999 800 / 2800 300 / 3100 Balance -1891.484 / -1891.484 300 / -1591.484 -179.867 / -1771.351 Weight last 48 hrs Weight 198 lb Weight 198 lb Physical Exam 2 Urinary Catheter Management: Alejandre: Cath Placed During This Visit: yes, but has since been removed by the nurse Reason for Continuing Indwelling Catheter: Decision to DC Catheter Urinary Catheter Date of Insertion: 06/03/23 Urinary Catheter Time of Insertion: 22:58 Date Urinary Catheter Removed: 06/04/23 Time Urinary Catheter Discontinued: 21:34 Data 06/03/23 08:20 A&P Assessment and plan (1) Supervision of normal first : 39 w 4 d (2) Gestational diabetes: admitted for induction of labor Attestations 2 Medical Necessity Statement*: patient at 39 w 4 d, admitted for induction of labor due to gestational diabetes Coding Level of Care Code Acute Code for Chg Fwd Diagnoses Supervision of normal first Z34.00 Gestational diabetes O24.419 Time Spent (min) 20
[2023-06-04] MEDS: lidocaine 2% INJ 20 mL INJECTION (23:48)
--- NOTE | 2023-06-04 23:50 | P.PN_ITS ---
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 Subjective: Interval history: June 04, 2023, 2350 DELIVERY NOTE , vigorous male infant Normal placenta and cord Cord gases and blood obtained Second-degree perineal laceration repaired EBL: 300 cc No complications Labor: Station: +1 Amniotic Membrane Status: Ruptured Monitor Mode: External Contraction Pattern: Regular Vitals/I&O/Wt Last Vital Signs Temp 97.5 F L 06/04/23 19:32 Pulse 98 06/05/23 01:37 Resp 16 06/04/23 08:35 BP 151/92 06/05/23 01:37 Pulse Ox 98 06/04/23 23:57 O2 Del Method Room Air 06/04/23 08:50 06/04/23 06/04/23 06/05/23 14:59 22:59 06:59 Intake Total 108.516 / 227.341 7504 / 1208.516 120.133 / 1328.649 Output Total 2000 / 2000 800 / 2800 300 / 3100 Balance -1891.484 / -1891.484 300 / -1591.484 -179.867 / -1771.351 Weight last 48 hrs Weight 198 lb Weight 198 lb Physical Exam 2 Urinary Catheter Management: Alejandre: Cath Placed During This Visit: yes, but has since been removed by the nurse Reason for Continuing Indwelling Catheter: Decision to DC Catheter Urinary Catheter Date of Insertion: 06/03/23 Urinary Catheter Time of Insertion: 22:58 Date Urinary Catheter Removed: 06/04/23 Time Urinary Catheter Discontinued: 21:34 Data 06/03/23 08:20 A&P Assessment and plan (1) Supervision of normal first : (2) Gestational diabetes: (3) Vaginal delivery: (4) Second degree perineal laceration: Attestations 2 Medical Necessity Statement*: patient at 39 w 4 d with gestational diabetes, admitted for induction of labor, now s/p vaginal delivery Coding Level of Care Code Acute Code for Chg Fwd Diagnoses Supervision of normal first Z34.00 Gestational diabetes O24.419 Vaginal delivery O80 Second degree perineal laceration O70.1 Time Spent (min) 120
--- NOTE | 2023-06-04 23:50 | PM.DELIVERY ---
Delivery Note: Date of delivery: June 04, 2023 Pre-delivery diagnoses: 39 w 4 d gestational diabetes induction of labor Post-delivery diagnoses: 39 w 4 d gestational diabetes induction of labor vaginal delivery repair of second-degree perineal laceration Procedure: vaginal delivery repair of second-degree perineal laceration Delivering Physician: Victor M Rangel MD Estimated blood loss (mL): 300 Findings: , vigorous male infant Normal placenta and cord Cord gases and blood obtained Second-degree perineal laceration repaired EBL: 300 cc No complications Pre-Delivery Course: normal labor course Delivery: vaginal Post-Delivery Status: good History History History 1 Term 0 Miscarriages/Ectopic Living Children A&P Assessment and plan (1) Vaginal delivery: care (2) Second degree perineal laceration: repaired Coding Level of Care Code Acute Code for Chg Fwd Diagnoses Vaginal delivery O80 Second degree perineal laceration O70.1 Time Spent (min) 120
[2023-06-05] VITALS (17 sets, daily range): BP systolic 105–151; BP diastolic 64–92; PULSE 81–110; RESP 16; TEMP 36.6–36.9; O2SAT 97–98
[2023-06-05] MEDS: acetaminophen 325 mg Tablet 650 MG PO (01:17)
--- NOTE | 2023-06-05 08:15 | ANE.PACU2 ---
Inpatient post-anesthesia follow up: Airway intact: Yes Vital signs: Temperature 98.3 F Pulse Rate 90 Respiratory Rate 16 Blood Pressure 105/69 Pulse Oximetry 97 Oxygen Delivery Me thod Room Air Oxygen Flow Rate Fraction of Inspir ed Oxygen Hydration adequate: Yes Nausea and vomiting: No Pain level: 2 Mental status: Baseline Additional Comments: Anes start 06/03/232151 Anes end 06/04/23 9107
[2023-06-05] MEDS: ibuprofen 800 mg tablet PO ×3 (08:26→20:25)
[2023-06-05] MEDS: docusate sodium 100 mg Capsule PO ×2 (08:26→18:39)
[2023-06-05] MEDS: prenatal vitamin Capsule 1 CAP PO (08:44)
[2023-06-05 13:11] LABS: Hematocrit 36.6 % (36-47); Mean Corpuscular HGB Conc 33.3 g/dL (30-55); Mean Corpuscular Hemoglobin 30.6 pg (27-33); Mean Corpuscular Volume 91.7 fl (85-98); Mean Platelet Volume 10.2 fL (7.4-10.4); Platelet Count 149 10^3/cmm (157-399); Red Blood Count 3.99 10^6/uL (3.85-5.65); Red Cell Distribution Width 13.5 % (12.1-15.1); White Blood Count 16.85 10^3/uL (3.29-11.43)
[2023-06-05] MEDS: benzocaine-menthol 78 gm Canister 1 SPRAY TOPICAL (21:45)
[2023-06-06 04:02] VITALS: BP 121/79; PULSE 78; RESP 16; TEMP 36.8; O2SAT 99
[2023-06-06] MEDS: docusate sodium 100 mg Capsule PO (09:31)
[2023-06-06] MEDS: ibuprofen 800 mg tablet PO (09:31)
[2023-06-06] MEDS: prenatal vitamin Capsule 1 CAP PO (09:31)
[2023-06-06 09:36] VITALS: BP 116/81; PULSE 87; RESP 17; TEMP 37
[2023-06-06 12:35] VITALS: BP 136/4; PULSE 116; RESP 17
[2023-06-06 12:45] VITALS: BP 136/4; PULSE 116; RESP 17
--- NOTE | 2023-06-06 14:44 | PM.OBGYPN ---
[employer] DR[employer] Subjective Subjective: Interval history: no c/o no bleeding, pain eating, voiding, ambulating well caring for without any problems Labor: Station: +1 Amniotic Membrane Status: Ruptured Monitor Mode: External Contraction Pattern: Regular Vitals/I&O/Wt Last Vital Signs Temp 98.6 F 06/06/23 09:36 Pulse 87 06/06/23 09:36 Resp 17 06/06/23 09:36 BP 116/81 06/06/23 09:36 Pulse Ox 99 06/06/23 04:02 O2 Del Method Room Air 06/05/23 20:29 Physical Exam Narrative: afebrile, VS normal comfortable, awake, alert Abd:? soft, nontender.? fundus firm Ext:? no edema;? nontender Urinary Catheter Management: Alejandre: Cath Placed During This Visit: yes, but has since been removed by the nurse Reason for Continuing Indwelling Catheter: Decision to DC Catheter Urinary Catheter Date of Insertion: 06/03/23 Urinary Catheter Time of Insertion: 22:58 Date Urinary Catheter Removed: 06/04/23 Time Urinary Catheter Discontinued: 21:34 Data 06/05/23 13:02 A&P Assessment and plan (1) Vaginal delivery: PPD #1? doing well ? discharge home today ? instructions and precautions given call/return if fever, chills, headache, blurry vision, nausea, vomiting, abdominal pain; vaginal bleeding or discharge; shortness of breath, chest pain, leg pains or swelling; inability to void, perineal pain or swelling; feelings of depression or mood changes; thoughts of suicide or harming others; inability to care for baby. f/u in 6 weeks or PRN Attestations Medical Necessity Statement*: patient s/p , plan discharge home today Coding Level of Care Code Acute Code for Chg Fwd Diagnoses Vaginal delivery O80 Time Spent (min) 20
--- NOTE | 2023-06-06 14:47 | PM.OBGYDC ---
Discharge Providers FAN MAIL EDITOR Date of Admission: 06/03/23 08:19 Date of Discharge: 06/06/23 Attending Provider at Admission: Victor M Rangel MD Attending Provider at Discharge: Victor M Rangel MD Consults: none Primary FAN MAIL EDITOR: Victor M Rangel MD Primary Care Provider: Avery Gabriel MD Diagnoses at Discharge Discharge Diagnosis (1) Vaginal delivery: Details from hospital stay: patient underwent induction of labor at 39 w 3 d due to gestational diabetes had normal labor course s/p vaginal delivery and repair of second-degree perineal laceration did well Status: Acute Reason for Visit Reason for Visit: INDUCTION OF LABOR FOR GDM Brief History: patient underwent induction of labor at 39 w 3 d due to gestational diabetes Hospital Course Hospital Course had normal labor course s/p vaginal delivery and repair of second-degree perineal laceration did well Information Peripartum Data: Infant Delivery Method: Vaginal Laceration description: Perineal - 2nd Degree Episiotomy description: None complications: none Physical Exam Narrative: afebrile, VS normal comfortable, awake, alert Abd:? soft, nontender.? fundus firm Ext:? no edema;? nontender Urinary Catheter Management: Alejandre: Cath Placed During This Visit: yes, but has since been removed by the nurse Reason for Continuing Indwelling Catheter: Decision to DC Catheter Urinary Catheter Date of Insertion: 06/03/23 Urinary Catheter Time of Insertion: 22:58 Date Urinary Catheter Removed: 06/04/23 Time Urinary Catheter Discontinued: 21:34 History History History 1 Term 0 Miscarriages/Ectopic Living Children Discharge Data Studies Completed and Pending Laboratory Results WBC 16.85 10^3/uL (3.29-11.43) H 06/05/23 13:02 RBC 3.99 10^6/uL (3.85-5.65) 06/05/23 13:02 Hgb 12.20 g/dL (11.27-16.99) 06/05/23 13:02 Hct 36.6 % (36-47) 06/05/23 13:02 MCV 91.7 fl (85-98) 06/05/23 13:02 MCH 30.6 pg (27-33) 06/05/23 13:02 MCHC 33.3 g/dL (30-55) 06/05/23 13:02 RDW 13.5 % (12.1-15.1) 06/05/23 13:02 Plt Count 149 10^3/cmm (157-399) L 06/05/23 13:02 MPV 10.2 fL (7.4-10.4) 06/05/23 13:02 Neut % (Auto) 62.3 % 06/03/23 08:20 Lymph % (Auto) 30.1 % 06/03/23 08:20 Maries % (Auto) 5.9 % 06/03/23 08:20 Eos % (Auto) 1.0 % 06/03/23 08:20 Baso % (Auto) 0.4 % 06/03/23 08:20 Neut # (Auto) 4.51 10^3/uL (1.8-7.7) 06/03/23 08:20 Lymph # (Auto) 2.2 10^3/uL (0.8-4.8) 06/03/23 08:20 Maries # (Auto) 0.4 10^3/uL (0.2-0.9) 06/03/23 08:20 Eos # (Auto) 0.1 10^3/uL (0.0-0.8) 06/03/23 08:20 Baso # (Auto) 0.0 10^3/uL (0.0-0.1) 06/03/23 08:20 Nucleated RBC % (auto) 0 % 06/03/23 08:20 Nucleated RBCs # 0.0 /100WBC 06/03/23 08:20 POC Glucose 113 mg/dL (70-110) H 06/03/23 08:26 Blood Type A Positive 06/03/23 08:20 Rho(D) Type Rh positive 06/03/23 08:20 Antibody Screen Negative 06/03/23 08:20 Procedures Performed labor induction vaginal delivery repair of second-degree perineal laceration Vitals Last Vital Signs Temp 98.6 F 06/06/23 09:36 Pulse 87 06/06/23 09:36 Resp 17 06/06/23 09:36 BP 116/81 06/06/23 09:36 Pulse Ox 99 06/06/23 04:02 O2 Del Method Room Air 06/05/23 20:29 Results Labs OB ([facility]): Obstetrics US 03/20/23 Obstetrics US/Biophysical Profile 06/02/23 Blood Type A Positive 06/03/23 Antibody Screen Negative 06/03/23 Hct 36.6 % (36-47) 06/05/23 Hgb 12.20 g/dL (11.27-16.99) 06/05/23 Rho(D) Type Rh positive 06/03/23 Plt Count 149 10^3/cmm (157-399) L 06/05/23 Hep Bs Antigen Non-reactive (Nonreactive) 11/18/22 Hepatitis C Antibody Non-reactive (Nonreactive) 11/18/22 Rubella IgG Antibody 435.1 IU/mL (0.0-10.0) H 11/18/22 RPR Nonreactive (Nonreactive) 11/18/22 HIV 1&2 Ab & HIV 1 Ag Non-reactive (Non-Reactiv) 11/18/22 TSH 1.89 uIU/mL (0.27-4.20) 12/20/22 C.trachomatis RNA (TMA) Not detected (NOT DETECTED) 11/29/22 N.gonorrhoeae RNA (TMA) Not detected (NOT DETECTED) 11/29/22 T. vaginalis Amp RNA Not detected (NOT DETECTED) 11/29/22 Chlamydia/GC Comment See note 11/29/22 Gest Glucose Tolerance mg/dL 04/03/23 Ser , Semi-Qnt 726534.00 mIU/mL 10/27/22 HCG, Qual Positive (Negative) H 10/24/22 Urine Opiates Screen Negative ng/mL (Negative) 11/15/22 Ur Barbiturates Screen Negative ng/mL (Negative) 11/15/22 Ur Phencyclidine Scrn Negative ng/mL (Negative) 11/15/22 Ur Amphetamines Screen Negative ng/mL (Negative) 11/15/22 U Benzodiazepines Scrn Negative ng/mL (Negative) 11/15/22 Urine Cocaine Screen Negative ng/mL (Negative) 11/15/22 U Marijuana (THC) Screen Negative ng/mL (Negative) 11/15/22 Micro Urine Specimen 11/29/22 Pap Smear Interpret See note 11/29/22 Discharge Plan Discharge Patient Disposition: Home Condition: Stable Prescriptions: Continued Gummies 400 mcg-35 mg- 25 mg-5 mg tablet,chewable 1 tab PO DAILY levothyroxine 100 mcg tablet 100 mcg PO DAILY Qty: 90 4RF Discontinued ondansetron HCl 4 mg tablet 4 mg PO Q6H Qty: 30 2RF metformin 500 mg tablet See Rx Instructions .ROUTE .COMPLEX Qty: 30 0RF Dose Instruction: TAKE 1 TABLET BY MOUTH TWICE DAILY WITH MEALS DIRECTED Rx Instructions: TAKE 1 TABLET BY MOUTH TWICE DAILY WITH MEALS DIRECTED No Action (DME) blood-glucose meter [Accu-Chek Guide Glucose Meter] Misc See Rx Instructions .ROUTE .MEDSUPPLY Qty: 1 0RF Rx Instructions: As directed (DME) Accu-Chek Guide test strips Strip See Rx Instructions .ROUTE .MEDSUPPLY Qty: 10 0RF Rx Instructions: As directed (DME) Comfort Touch Ult Thin Lancets 31 gauge misc See Rx Instructions .ROUTE .MEDSUPPLY Qty: 100 0RF Rx Instructions: As directed Discharge Orders: Discharge Order (Routine); Ordered 06/06/23 Ordered By: Victor M Rangel Referrals: Victor M Rangel MD [Physician] - 07/23/23 9:00 am Discharge Diet: Usual diet Discharge Activity: Resume usual activity Patient Instructions: Depression (DC), Perineal Care (DC), Bleeding (DC), Preeclampsia and Eclampsia After Delivery (GEN), COVID-19 and (GEN), Hemorrhage (DC), OB Discharge Report, OB Food/Drug Interaction Guide, OB Care at Home, Opioid Safety, OB Home Care, OB Vaginal Deliveries - [facility], Abnormal Bleeding Discharge Attestations FAN MAIL EDITOR Time Spent in Discharge Care*: less than 30 min Coding Level of Care Code Acute Code for Chg Fwd Diagnoses Vaginal delivery O80 Time Spent (min) 20
== END 2023-06-06 12:45 | disposition home or self-care (01) | DRG 807 ==
LOC: OBGYN 08:22
PROVIDERS: Absent Provider Obstetrics & Gynecology; Admitting Provider Obstetrics & Gynecology; PCP Family Medicine; Visit Provider Obstetrics & Gynecology
DX: O24.425 Gestational diabetes mellitus in childbirth, controlled by oral hypoglycemic drugs (principal); Z37.0 Single live birth; Z3A.39 39 weeks gestation of pregnancy; O70.1 Second degree perineal laceration during delivery
CPT/HCPCS: 36415; 36416; 51702; 59025; 59409; 81000; 82962; 85025; 85027; 86850; 86900; 96374; 96376; 98960; 99211; J2405; J2590; J2795; J3010; J3490; J7120; J7121

== ENCOUNTER → 2023-08-25 10:49 | Outpatient (BNVA) | payer BC, SELFPAY | PROVIDERS: PCP Family Medicine; Visit Provider Obstetrics & Gynecology | DX: Z34.00 Encounter for supervision of normal first pregnancy, unspecified trimester (principal) | CPT/HCPCS: 84443 ==

== ENCOUNTER → 2023-10-22 16:54 | Outpatient (BNVA) | payer BC, SELFPAY | PROVIDERS: PCP Family Medicine; Visit Provider Nurse Practitioner Women's Health | DX: R53.83 Other fatigue (principal); R68.89 Other general symptoms and signs; R45.4 Irritability and anger | CPT/HCPCS: 84439; 84443; 84481 ==

== ENCOUNTER → 2023-11-03 10:00 | Outpatient (BNVA) | payer BC, SELFPAY | PROVIDERS: PCP Family Medicine; Referring Provider Nurse Practitioner Women's Health; Visit Provider Internal Medicine | DX: E07.9 Disorder of thyroid, unspecified (principal); E03.9 Hypothyroidism, unspecified; R79.89 Other specified abnormal findings of blood chemistry; J06.9 Acute upper respiratory infection, unspecified | CPT/HCPCS: 36415; 83516; 84439; 84443; 86376; 86800 ==

== ENCOUNTER 2023-12-03 12:18 | Outpatient (CLI) | payer BC, SELFPAY | END 2023-12-03 12:19 | disposition home or self-care (01) | LOC: LAB 03-25 09:01 | PROVIDERS: PCP Family Medicine; Visit Provider Internal Medicine | DX: E07.9 Disorder of thyroid, unspecified (principal) | CPT/HCPCS: 36415; 84439; 84443 ==

== ENCOUNTER → 2024-01-14 13:01 | Outpatient (BNVA) | payer BC, SELFPAY | PROVIDERS: PCP Family Medicine; Visit Provider Internal Medicine | DX: E07.9 Disorder of thyroid, unspecified (principal); E03.9 Hypothyroidism, unspecified; R79.89 Other specified abnormal findings of blood chemistry | CPT/HCPCS: 84439; 84443 ==

== ENCOUNTER 2024-03-11 11:38 | Outpatient (CLI) | payer BC, SELFPAY ==
[2024-03-11 12:56] LABS: Free T4 Free Thyroxine 1.18 ng/dL (0.82-1.77); Thyroid Stimulating Hormone 8.46 uIU/mL (0.27-4.20)
== END 2024-03-11 11:39 | disposition home or self-care (01) ==
LOC: LAB 11:38
PROVIDERS: PCP Family Medicine; Visit Provider Internal Medicine
DX: E07.9 Disorder of thyroid, unspecified (principal); E03.9 Hypothyroidism, unspecified; R79.89 Other specified abnormal findings of blood chemistry
CPT/HCPCS: 36415; 84439; 84443

== ENCOUNTER 2024-03-30 15:52 | Outpatient (CLI) | payer BC, SELFPAY ==
--- NOTE | 2024-03-30 16:00 | US_ITS ---
WS: [id number] THYROID ULTRASOUND HISTORY: thyromegaly COMPARISON: 12/19/2016 Right lobe: 1.8 cm x 1.2 cm x 4.3 cm (w x ap x l). Volume: 4.4 cm3. Heterogeneous gland with pseudo nodules scattered throughout which can be seen with thyroiditis. Ther e is no discrete mass. There is mild increased vascularity. Left lobe: 1.6 cm x 1.6 cm x 5.0 cm (w x ap x l). Volume: 5.9 cm3. Mildly enlarged gland with scattered pseudo nodules and heterogeneity. Minimal increased vascularity. No solid mass. Isthmus: 0.5 cm. US/US thyroid [id number] IMPRESSION: 1. Heterogeneous thyroid gland with pseudo nodules consistent with Angélica's thyroiditis. There is continued increased vascularity. 2. No developing mass or nodule suspicious for neoplasm at this time.
== END 2024-03-30 15:53 | disposition home or self-care (01) ==
LOC: RAD 15:52
PROVIDERS: PCP Family Medicine; Visit Provider Internal Medicine
DX: E01.0 Iodine-deficiency related diffuse (endemic) goiter (principal)
CPT/HCPCS: 76536

== ENCOUNTER → 2024-04-28 08:24 | Outpatient (BNVA) | payer BC, SELFPAY | PROVIDERS: PCP Family Medicine; Visit Provider Nurse Practitioner Women's Health | DX: N76.0 Acute vaginitis (principal) | CPT/HCPCS: 81000 ==

== ENCOUNTER 2024-05-21 10:40 | Outpatient (CLI) | payer BC, SELFPAY ==
[2024-05-21 11:34] LABS: Free T4 Free Thyroxine 1.41 ng/dL (0.82-1.77); Thyroid Stimulating Hormone 0.63 uIU/mL (0.27-4.20)
== END 2024-05-21 10:41 | disposition home or self-care (01) ==
LOC: LAB 10:41
PROVIDERS: PCP Family Medicine; Visit Provider Internal Medicine
DX: E07.9 Disorder of thyroid, unspecified (principal); E03.9 Hypothyroidism, unspecified; R79.89 Other specified abnormal findings of blood chemistry
CPT/HCPCS: 36415; 84439; 84443

== ENCOUNTER → 2024-06-01 10:49 | Outpatient (BNVA) | payer BC, SELFPAY | PROVIDERS: PCP Family Medicine; Visit Provider Nurse Practitioner Women's Health | DX: Z34.90 Encounter for supervision of normal pregnancy, unspecified, unspecified trimester (principal); N91.2 Amenorrhea, unspecified | CPT/HCPCS: 81025; 84702; 86850; 86900 ==

== ENCOUNTER → 2024-06-10 13:33 | Outpatient (BNVA) | payer BC, SELFPAY | PROVIDERS: PCP Family Medicine; Visit Provider Nurse Practitioner Women's Health | DX: Z34.90 Encounter for supervision of normal pregnancy, unspecified, unspecified trimester (principal) | CPT/HCPCS: 76801 ==

== ENCOUNTER → 2024-06-29 12:36 | Outpatient (BNVA) | payer BC, SELFPAY | PROVIDERS: PCP Family Medicine; Visit Provider Nurse Practitioner Women's Health | DX: Z34.91 Encounter for supervision of normal pregnancy, unspecified, first trimester (principal) | CPT/HCPCS: 80307; 82950; 84315; 84443; 85025; 86592; 86762; 86803; 86850; 86900; 87086; 87340; 87491; 87591; 87661; 87806 ==

== ENCOUNTER → 2024-07-07 11:20 | Outpatient (BNVA) | payer BC, SELFPAY | PROVIDERS: PCP Family Medicine; Visit Provider Obstetrics & Gynecology | DX: Z34.80 Encounter for supervision of other normal pregnancy, unspecified trimester (principal); Z3A.00 Weeks of gestation of pregnancy not specified | CPT/HCPCS: 84315; 87624 ==

== ENCOUNTER → 2024-07-08 08:02 | Outpatient (BNVA) | payer BC, SELFPAY | PROVIDERS: PCP Family Medicine; Visit Provider Obstetrics & Gynecology | DX: Z34.80 Encounter for supervision of other normal pregnancy, unspecified trimester (principal); Z3A.00 Weeks of gestation of pregnancy not specified | CPT/HCPCS: 82951; 82952 ==

== ENCOUNTER → 2024-08-09 09:29 | Outpatient (BNVA) | payer BC, SELFPAY | PROVIDERS: PCP Family Medicine; Visit Provider Nurse Practitioner Women's Health | DX: Z34.80 Encounter for supervision of other normal pregnancy, unspecified trimester (principal); E03.9 Hypothyroidism, unspecified | CPT/HCPCS: 84315; 84439; 84443; 84481 ==

== ENCOUNTER → 2024-09-07 09:25 | Outpatient (BNVA) | payer BC, SELFPAY | PROVIDERS: PCP Family Medicine; Visit Provider Nurse Practitioner Women's Health | DX: Z34.82 Encounter for supervision of other normal pregnancy, second trimester (principal) | CPT/HCPCS: 76805 ==

== ENCOUNTER → 2024-09-15 13:16 | Outpatient (BNVA) | payer BC, SELFPAY | PROVIDERS: PCP Family Medicine; Visit Provider Obstetrics & Gynecology | DX: Z34.80 Encounter for supervision of other normal pregnancy, unspecified trimester (principal) | CPT/HCPCS: 84315 ==

== ENCOUNTER → 2024-09-29 07:58 | Outpatient (BNVA) | payer BC, SELFPAY | PROVIDERS: PCP Family Medicine; Visit Provider Nurse Practitioner Women's Health | DX: Z34.90 Encounter for supervision of normal pregnancy, unspecified, unspecified trimester (principal) | CPT/HCPCS: 84315 ==

== ENCOUNTER → 2024-10-27 11:24 | Outpatient (BNVA) | payer BC, SELFPAY | PROVIDERS: PCP Family Medicine; Visit Provider Obstetrics & Gynecology | DX: Z34.80 Encounter for supervision of other normal pregnancy, unspecified trimester (principal) | CPT/HCPCS: 84315 ==

== ENCOUNTER → 2024-10-28 07:55 | Outpatient (BNVA) | payer BC, SELFPAY | PROVIDERS: PCP Family Medicine; Visit Provider Obstetrics & Gynecology | DX: Z34.80 Encounter for supervision of other normal pregnancy, unspecified trimester (principal) | CPT/HCPCS: 82951; 82952; 85025 ==

== ENCOUNTER → 2024-11-11 09:16 | Outpatient (BNVA) | payer BC, SELFPAY | PROVIDERS: PCP Family Medicine; Visit Provider Obstetrics & Gynecology | DX: O09.299 Supervision of pregnancy with other poor reproductive or obstetric history, unspecified trimester (principal); Z86.32 Personal history of gestational diabetes | CPT/HCPCS: 84315 ==

== ENCOUNTER 2024-11-19 14:26 | Outpatient (CLI) | payer BC, SELFPAY ==
[2024-11-19 15:20] LABS: Free T4 Free Thyroxine 1.02 ng/dL (0.82-1.77); Thyroid Stimulating Hormone 0.97 uIU/mL (0.27-4.20)
== END 2024-11-19 14:27 | disposition home or self-care (01) ==
PROVIDERS: PCP Family Medicine; Visit Provider Internal Medicine
DX: E03.9 Hypothyroidism, unspecified (principal)
CPT/HCPCS: 36415; 84439; 84443

== ENCOUNTER → 2024-11-24 08:45 | Outpatient (BNVA) | payer BC, SELFPAY | PROVIDERS: PCP Family Medicine; Visit Provider Nurse Practitioner Women's Health | DX: O09.293 Supervision of pregnancy with other poor reproductive or obstetric history, third trimester (principal) | CPT/HCPCS: 84315 ==

== ENCOUNTER → 2024-12-09 12:43 | Outpatient (BNVA) | payer BC, SELFPAY | PROVIDERS: PCP Family Medicine; Visit Provider Nurse Practitioner Women's Health | DX: O09.299 Supervision of pregnancy with other poor reproductive or obstetric history, unspecified trimester (principal); Z86.32 Personal history of gestational diabetes; R03.0 Elevated blood-pressure reading, without diagnosis of hypertension | CPT/HCPCS: 76816; 80053; 82570; 84156; 84315; 84550; 85025 ==

== ENCOUNTER 2024-12-13 08:04 | Outpatient (CLI) | payer BC, SELFPAY ==
[2024-12-13 08:07] VITALS: RESP 18; TEMP 37
[2024-12-13 08:15] VITALS: BP 128/59; PULSE 110
[2024-12-13 08:29] VITALS: BP 130/63; PULSE 88
[2024-12-13 08:44] VITALS: BP 118/62; PULSE 94
[2024-12-13 09:12] LABS: Urine Total Protein 4.7 mg/dL (0-150)
[2024-12-13 09:34] LABS: Total Volume, Urine 1100 mL; Urine Total Protein 24 Hour 51.7 mg/24hr (0-150)
== END 2024-12-13 08:55 | disposition home or self-care (01) ==
LOC: OPOB 08:05 → OBGYN 08:06
PROVIDERS: PCP Family Medicine; Visit Provider Obstetrics & Gynecology
DX: O13.9 Gestational [pregnancy-induced] hypertension without significant proteinuria, unspecified trimester (principal); Z3A.00 Weeks of gestation of pregnancy not specified
CPT/HCPCS: 59025; 84156; 99211

== ENCOUNTER → 2024-12-16 13:08 | Outpatient (BNVA) | payer BC, SELFPAY | PROVIDERS: PCP Family Medicine; Visit Provider Nurse Practitioner Women's Health | DX: Z34.80 Encounter for supervision of other normal pregnancy, unspecified trimester (principal) | CPT/HCPCS: 84315 ==

== ENCOUNTER → 2024-12-23 09:28 | Outpatient (BNVA) | payer BC, SELFPAY | PROVIDERS: PCP Family Medicine; Visit Provider Obstetrics & Gynecology | DX: O09.299 Supervision of pregnancy with other poor reproductive or obstetric history, unspecified trimester (principal); Z86.32 Personal history of gestational diabetes | CPT/HCPCS: 84315; 87081 ==

== ENCOUNTER → 2024-12-30 09:16 | Outpatient (BNVA) | payer BC, SELFPAY | PROVIDERS: PCP Family Medicine; Visit Provider Obstetrics & Gynecology | DX: O09.299 Supervision of pregnancy with other poor reproductive or obstetric history, unspecified trimester (principal); Z86.32 Personal history of gestational diabetes | CPT/HCPCS: 84315 ==

== ENCOUNTER → 2025-01-06 10:25 | Outpatient (BNVA) | payer BC, SELFPAY | PROVIDERS: PCP Family Medicine; Visit Provider Obstetrics & Gynecology | DX: O09.299 Supervision of pregnancy with other poor reproductive or obstetric history, unspecified trimester (principal); Z86.32 Personal history of gestational diabetes | CPT/HCPCS: 84315 ==

== ENCOUNTER → 2025-01-13 09:18 | Outpatient (BNVA) | payer BC, SELFPAY | PROVIDERS: PCP Family Medicine; Visit Provider Obstetrics & Gynecology | DX: Z34.83 Encounter for supervision of other normal pregnancy, third trimester (principal); Z86.32 Personal history of gestational diabetes | CPT/HCPCS: 84315 ==

== ENCOUNTER 2025-01-21 07:15 | Inpatient (IN) | payer BC, SELFPAY ==
[2025-01-21] VITALS (26 sets, daily range): BP systolic 121–158; BP diastolic 63–90; PULSE 73–134; RESP 16–18; TEMP 36.7–37.1
[2025-01-21 09:42] LABS: Hematocrit 38.9 % (36-47); Hemoglobin 13.40 g/dL (11.27-16.99); Mean Corpuscular HGB Conc 34.4 g/dL (30-55); Mean Corpuscular Hemoglobin 31.8 pg (27-33); Mean Corpuscular Volume 92.4 fl (85-98); Nucleated Red Blood Cells % 0 %; Platelet Count 176 10^3/cmm (157-399); Red Blood Count 4.21 10^6/uL (3.85-5.65); White Blood Count 7.83 10^3/uL (3.29-11.43)
--- NOTE | 2025-01-21 10:44 | P.HP_ITS ---
Providers/Chief Complaint 2 Admitting Physician: Ronnie Primary Care Provider: Avery Gabriel MD Chief Complaint: INDUCTION History of Present Illness Jannie Alcantara is a 29 year old female patient with LMP of 04/13/2024, JENNIFER 01/18/2025, placing her at 39-5/7 weeks today. Here for IOL. no c/o + active movements POBHx: 06-05-24, GDM, controlled with metformin Review of Systems 2 General: Reports: 10 or more systems reviewed and unremarkable except in HPI and below (No VB LOF or Cx's) Medications/Allergies Home Medications ?Medication ?Instructions ?Recorded ?Confirmed ?Last Taken ?Type promethazine 12.5 mg tablet 12.5 mg PO TID #90 tabs 01/21/25 Unknown Rx ondansetron HCl 4 mg tablet 4 mg PO Q8H #30 tabs 07/0601/21/25 Unknown Rx levothyroxine 100 mcg tablet See Rx Instructions .Rout e 11/25/24 01/21/25 01/21/25 06:00 Rx .COMPLEX #60 tabs gvvltpjx-vqt-Ho-FA 1 mg 1 tab PO DAILY 01/21/25 01/20/25 20:00 History tablet Allergies Allergy/AdvReac Type Severity Reaction Status Date / Time No Known Allergies Allergy Verified 01/13/25 08:10 PFSH Acute 2 PFSH: Medical History (Updated 01/21/25 @ 13:02 by George Trujillo MD) Hx gestational diabetes Gestational diabetes Supervision of normal first Second degree perineal laceration Vaginal delivery No pertinent past medical history neghx: htn,dm,thyroid,dvt/pe PCP: Dr. Gabriel Helicobacter pylori gastritis treated with abx; cleared Decreased libido Situational mixed anxiety and depressive disorder has used medication in the past that made her nauseated or jittery; not currently taking any medication; feels this is more anxiety than depression. Surgical History H/O esophagogastroduodenoscopy (10/24/21) Family History Father Cancer Melanoma Diabetes Grandfather Chronic kidney disease (CKD) Paternal Grandmother Diabetes Paternal Grandfather Diabetes Maternal Mother Hypertension Denies family history of CAD (coronary artery disease) Hyperlipidemia Bleeding disorder Thyroid disease Stroke Social History Smoking and tobacco/nicotine status: unknown if used tobacco/nicotine Female Reproductive History: : 2 Vitals/I&O/Wt Last Vital Signs Temp 98.8 F 01/21/25 07:53 Pulse 99 01/21/25 09:23 Resp 18 01/21/25 07:53 BP 127/66 01/21/25 09:23 O2 Del Method Room Air 01/21/25 08:00 Weight last 48 hrs Weight 6.984 oz Physical Exam 2 Narrative: S=Ds CCS=219 Pelvic 0/60%/flt/vx/IM Data 01/21/25 08:35 US OB: Radiologist's impression: Ordering Provider/Ordering MD: Spring Abdalla NP Date of Service: 12/09/24 Procedure(s): [place] [id number] Accession Number(s): [id number] Report Number: [id number] PROCEDURE INFORMATION: Exam: US , Follow up Exam date and time: 12/09/2024 12:51 PM Age: 29 years old Clinical indication: Screening exam; Routine US, uterus; Growth TECHNIQUE: Imaging protocol: Transabdominal ultrasound of the uterus, real time with image documentation. Follow-up (eg, re-evaluation of size by measuring standard growth parameters and amniotic fluid volume, re-evaluation of organ system(s) suspected or confirmed to be abnormal on a previous scan). COMPARISON: US OB >= 14 weeks fetus [id number] 09/07/2024 9:32 AM FINDINGS: Gestation: Single live intrauterine . heart rate: cardiac heart rate measures 130 bpm presentation and position: The presentation is vertex. Placenta: Placenta is anterior. Amniotic fluid index: Amniotic fluid index measures 11.2 cm BIOMETRY: Gestational age (AUA): Estimated gestational age is 35 weeks 0 day. Estimated due date (AUA): Estimated due date by ultrasound is 01/13/2025 Estimated weight: The estimated weight by ultrasound is 2410 g which corresponds to 46 percentile Biparietal diameter (BPD): Biparietal diameter 35 weeks 5 days 86 percentile Head circumference (HC): Head circumference 35 weeks 6 days 53 percentile Abdominal circumference (AC): Abdominal circumference 33 weeks 6 days 41 percentile Femur length (FL): Femur length 34 weeks 2 days 42 percentile MATERNAL: Cervix: Cervix measures 3.9 cm. Cervix is closed. US/[place] [id number] IMPRESSION: Single live intrauterine estimated gestational age 35 weeks and 0 day. Dictated By: Gibran Beauchamp MD Signed By: Gibran Beauchamp MD Signed Date/Time: 12/13/24 0706 DD/ 1251 A&P Assessment and plan 1. Encounter for induction of labor: 2. 39 weeks gestation of : 3. H/O gestational diabetes in prior , currently : Plan: Admit to L&D monitoring Notify anesthesia if epidural requested Anticipate vag delivery NPO except ice chips when in active labor IV ? D5LR at 125 cc/hr CBC, T&S, RPR See Orders PDMP PDMP Reviewed: Not Reviewed Attestations 2 Medical Necessity Statement*: IOL necessitating admission expected for more than 2 days, vaginal delivery at term. Coding Level of Care Code Acute Code for Chg Fwd Diagnoses Encounter for induction of labor Z34.90 39 weeks gestation of Z3A.39 H/O gestational diabetes in prior , currently O09.299; Z86.32
[2025-01-21] MEDS: oxytocin 30 UNIT/500 ML BAG IV (21:04)
[2025-01-22] VITALS (51 sets, daily range): BP systolic 112–154; BP diastolic 57–98; PULSE 58–190; RESP 16; TEMP 36.6–36.9; O2SAT 97–99
[2025-01-22] MEDS: ondansetron 2 mg/ML SDV 2 mL 4 MG IVP ×2 (01:24→09:31)
[2025-01-22] MEDS: ROPivacaine syringe 100 MG/50 ML SYRINGE 10 MG EPIDURAL ×3 (03:10→10:35)
--- NOTE | 2025-01-22 03:15 | ANES.PREANE2 ---
Pre-Anesthetic Assessment Height/Weight: Height 5 ft 6 in Weight 6.984 oz Temp Pulse Resp BP Pulse Ox O2 Del Method 98.2 F 72 16 125/65 99 Room Air 01/21/25 21:45 01/22/25 03:13 01/21/25 17:43 01/22/25 03:13 01/22/25 03:04 01/21/25 08:00 Preop Diagnosis: IUP Was Beta Maty taken within 24 hours: N/A Was Clonidine taken within 24 hours: N/A Social No alcohol and No tobacco Exam alert, oriented x 3, clear to auscultation bilaterally and regular rate & rhythm Airway Submandibular: within normal limits Cervical ROM: within normal limits Mallampati: Class II Dentition: full Anesthetic Plan ASA status: 2 Anesthesia: Regional (specify below) Other: G2, P1 here for active labor Prior epidural had to be replaced because it stopped working History of hypothyroidism on Synthroid History of gestational diabetes, not this 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 Labs reviewed acceptable for procedure Plan for routine epidural placement Medications/Allergies Home Medications ?Medication ?Instructions ?Recorded ?Confirmed ?Last Taken ?Type promethazine 12.5 mg tablet 12.5 mg PO TID #90 tabs 06/01/24 01/21/25 Unknown Rx ondansetron HCl 4 mg tablet 4 mg PO Q8H #30 tabs 07/06/24 01/21/25 Unknown Rx levothyroxine 100 mcg tablet See Rx Instructions .Route 11/25/24 01/21/25 01/21/25 06:00 Rx .COMPLEX #60 tabs [id number] 1 mg 1 tab PO DAILY 01/21/25 01/21/25 01/20/25 20:00 History tablet Allergies Allergy/AdvReac Type Severity Reaction Status Date / Time No Known Allergies Allergy Verified 01/13/25 08:10 Current Medications Generic Name Dose Route Start Last Admin Trade Name Freq PRN Reason Stop Dose Admin Oxytocin 30 unit in 500 mls @ 1 mls/hr 01/21/25 18:30 01/21/25 21:45 Pitocin IV 2 milliunit/min .Q24H CAROLEE 2 mls/hr Protocol Titration 1 MILLIUNIT/MIN Dextrose/Lactated Ringer's 1,000 mls @ 125 mls/hr 01/21/25 18:30 01/21/25 21:04 Dextrose 5%-Lactated Ringers IV 125 mls/hr .Q8H CAROLEE Administration Sodium Chloride 1,000 mls @ 999 mls/hr 01/21/25 19:34 01/22/25 01:49 Sodium Chloride 0.9% IV 999 mls/hr .Q1H1M PRN Administration See label comments Ondansetron HCl 4 mg 01/21/25 08:33 01/22/25 01:24 Ondansetron 2 Mg/Ml Sdv 2 Ml IVP 4 mg Q4H PRN Administration NAUSEA AND VOMITING PFSH Anesthesia Medical History (Updated 01/21/25 @ 13:02 by George Trujillo MD) Hx gestational diabetes Gestational diabetes Supervision of normal first Second degree perineal laceration Vaginal delivery No pertinent past medical history neghx: htn,dm,thyroid,dvt/pe PCP: Dr. Gabriel Helicobacter pylori gastritis treated with abx; cleared Decreased libido Situational mixed anxiety and depressive disorder has used medication in the past that made her nauseated or jittery; not currently taking any medication; feels this is more anxiety than depression. Surgical History H/O esophagogastroduodenoscopy (10/24/21) Family History Father Cancer Melanoma Diabetes Grandfather Chronic kidney disease (CKD) Paternal Grandmother Diabetes Paternal Grandfather Diabetes Maternal Mother Hypertension Denies family history of CAD (coronary artery disease) Hyperlipidemia Bleeding disorder Thyroid disease Stroke Social History Smoking and tobacco/nicotine status: unknown if used tobacco/nicotine Female Reproductive History : 2 Data Anesthesia 01/21/25 08:35 Short CBC 01/21/25 Range/Units 08:35 WBC 7.83 (3.29-11.43) 10^3/uL Hgb 13.40 (11.27-16.99) g/dL Hct 38.9 (36-47) % MCV 92.4 (85-98) fl Plt Count 176 (157-399) 10^3/cmm Neut % (Auto) 67.7 % Neut # (Auto) 5.30 (1.8-7.7) 10^3/uL
--- NOTE | 2025-01-22 03:17 | ANES.PROC ---
Anesthesia Procedures Procedure/Date: 01/22/25 Epidural: Time Out Performed: Yes Consents Signed: Procedure Consent Consent: requested by attending/covering physician and from patient Lumbar Level: L3-L4 Epidural position: sitting Additional Comments: CSE performed. Back was prepped with ChloraPrep. 1% lidocaine was used to numb the skin. An 18-gauge epidural needle was then introduced until [id number] was received at 8 cm. At this point a 27-gauge spinal needle was introduced into the intrathecal space. 1 cc of 0.25% bupivacaine was then injected into the spinal space. Spinal needle was removed and epidural catheter was placed into the epidural space. Catheter was left at 15 cm to the skin. Sterile dressing was applied. Patient tolerated procedure well. 0.2% ropivacaine was set at 10 mL/h
--- NOTE | 2025-01-22 11:45 | PM.DELIVERY ---
Delivery Note: Date of delivery: January 22, 2025 Pre-delivery diagnoses: 40 w 4 d no complications admitted for induction of labor Post-delivery diagnoses: 40 w 4 d no complications admitted for induction of labor cytotec and pitocin induction vaginal delivery repair of second-degree perineal and right labial lacerations Procedure: induction of labor vaginal delivery repair of second-degree perineal and right labial lacerations Op report anesthesia: Epidural Delivering Physician: Victor M Rangel MD Estimated blood loss (mL): 300 Findings: , vigorous female infant Cord gases and blood obtained Normal placenta and cord Second-degree perineal and right labial lacerations repaired EBL: 300 cc No complications Pre-Delivery Course: normal labor course fetus reassuring throughout Delivery: vaginal Post-Delivery Status: good History History History 2 Term 1 0 Miscarriages/Ectopic 0 Living Children 1 A&P Assessment and plan 1. Vaginal delivery: PDMP PDMP Reviewed: Not Reviewed Coding Level of Care Code Acute Code for Chg Fwd Diagnoses Vaginal delivery O80
[2025-01-22] MEDS: benzocaine-menthol 78 gm Canister 1 SPRAY TOPICAL (16:08)
--- NOTE | 2025-01-22 18:05 | ANE.PACU2 ---
Inpatient post-anesthesia follow up: Airway intact: Yes Vital signs: Temperature 98.2 F Pulse Rate 72 Respiratory Rate 16 Blood Pressure 115/79 Pulse Oximetry 98 Oxygen Delivery Me thod Room Air Oxygen Flow Rate Fraction of Inspir ed Oxygen Hydration adequate: Yes Nausea and vomiting: No Pain level: 2 Mental status: Baseline Epidural Start/End: Epidural Start Date: 01/22/25 Epidural Start Time: 03:01 Epidural End Date: 01/22/25 Epidural End Time: 14:45
[2025-01-23 02:34] LABS: Hematocrit 35.6 % (36-47); Hemoglobin 11.90 g/dL (11.27-16.99); Mean Corpuscular HGB Conc 33.4 g/dL (30-55); Mean Corpuscular Hemoglobin 31.6 pg (27-33); Mean Corpuscular Volume 94.7 fl (85-98); Platelet Count 146 10^3/cmm (157-399); Red Blood Count 3.76 10^6/uL (3.85-5.65); White Blood Count 12.30 10^3/uL (3.29-11.43)
[2025-01-23] MEDS: PRENATAL VIT NO.130/IRON/FOLIC 1 EACH TABLET PO (09:33)
[2025-01-23 09:35] VITALS: BP 113/70; PULSE 64; RESP 16; TEMP 36.4
[2025-01-23 13:56] VITALS: BP 115/79; PULSE 72; RESP 16; TEMP 36.8; O2SAT 98
--- NOTE | 2025-01-23 15:06 | PM.OBGYDC ---
Discharge Providers [employer]ACHINE ADJUST[employer] Date of Admission: 01/21/25 07:15 Date of Discharge: 01/23/25 Attending Provider at Admission: George Trujillo MD Attending Provider at Discharge: Victor M Rangel MD Consults: none Primary ENVELOPE MACHINE ADJUSTER: Victor M Rangel MD Primary Care Provider: Avery Gabriel MD Diagnoses at Discharge Discharge Diagnosis 1. Vaginal delivery: Details from hospital stay: 29 y.o. EDC January 18, 2025 at 40 w 4 d admitted for induction of labor patient received cytotec and pitocin patient progressed to complete dilatation fetus was reassuring throughout had vaginal delivery of vigorous female and repair of second-degree perineal and right labial lacerations patient did well and was discharged to home on the first day Reason for Visit Reason for Visit: INDUCTION Brief History: 29 y.o. EDC January 18, 2025 at 40 w 4 d admitted for induction of labor Hospital Course Hospital Course 29 y.o. EDC January 18, 2025 at 40 w 4 d admitted for induction of labor patient received cytotec and pitocin patient progressed to complete dilatation fetus was reassuring throughout had vaginal delivery of vigorous female and repair of second-degree perineal and right labial lacerations patient did well and was discharged to home on the first day Information Peripartum Data: Infant Delivery Method: Vaginal Laceration description: Perineal - 2nd Degree Physical Exam Narrative: afebrile, VS normal comfortable, awake, alert Lungs: clear Cor: RRR Abd: soft, nontender. fundus firm Ext: no edema; nontender Hgb 11.9 Urinary Catheter Management: Alejandre Latex: Cath Placed During This Visit: yes, but has since been removed by the nurse Reason for Continuing Indwelling Catheter: Decision to DC Catheter Urinary Catheter Date of Insertion: 01/22/25 Urinary Catheter Time of Insertion: 04:34 Date Urinary Catheter Removed: 01/22/25 Time Urinary Catheter Discontinued: 11:15 History History History 2 Term 1 0 Miscarriages/Ectopic 0 Living Children 1 Discharge Data Studies Completed and Pending Laboratory Results WBC 12.30 10^3/uL (3.29-11.43) H 01/23/25 01:45 RBC 3.76 10^6/uL (3.85-5.65) L 01/23/25 01:45 Hgb 11.90 g/dL (11.27-16.99) 01/23/25 01:45 Hct 35.6 % (36-47) L 01/23/25 01:45 MCV 94.7 fl (85-98) 01/23/25 01:45 MCH 31.6 pg (27-33) 01/23/25 01:45 MCHC 33.4 g/dL (30-55) 01/23/25 01:45 RDW 13.6 % (12.1-15.1) 01/23/25 01:45 Plt Count 146 10^3/cmm (157-399) L 01/23/25 01:45 MPV 10.7 fL (7.4-10.4) H 01/23/25 01:45 Neut % (Auto) 67.7 % 01/21/25 08:35 Lymph % (Auto) 25.0 % 01/21/25 08:35 [place] % (Auto) 5.9 % 01/21/25 08:35 Eos % (Auto) 0.6 % 01/21/25 08:35 Baso % (Auto) 0.4 % 01/21/25 08:35 Neut # (Auto) 5.30 10^3/uL (1.8-7.7) 01/21/25 08:35 Lymph # (Auto) 2.0 10^3/uL (0.8-4.8) 01/21/25 08:35 [place] # (Auto) 0.5 10^3/uL (0.2-0.9) 01/21/25 08:35 Eos # (Auto) 0.1 10^3/uL (0.0-0.8) 01/21/25 08:35 Baso # (Auto) 0.0 10^3/uL (0.0-0.1) 01/21/25 08:35 Nucleated RBC % (auto) 0 % 01/21/25 08:35 Nucleated RBCs # 0.0 /100WBC 01/21/25 08:35 Procedures Performed induction of labor vaginal delivery repair of second-degree perineal and right labial lacerations Vitals Last Vital Signs Temp 97.6 F 01/23/25 09:35 Pulse 64 01/23/25 09:35 Resp 16 01/23/25 09:35 BP 113/70 01/23/25 09:35 Pulse Ox 98 01/22/25 21:26 O2 Del Method Room Air 01/22/25 21:26 Results Labs OB ([facility]): Obstetrics US 12/09/24 Obstetrics US/Biophysical Profile 06/02/23 Blood Type A Positive 06/29/24 Antibody Screen Negative 06/29/24 Hct, (36-47) 35.6 % L Today Hgb, (11.27-16.99) 11.90 g/dL Today Rho(D) Type Rh positive 06/29/24 Plt Count, (157-399) 146 10^3/cmm L Today Hep Bs Antigen, (Nonreactive) Non-reactive 06/29/24 Hepatitis C Antibody, (Nonreactive) Non-reactive 06/29/24 Rubella IgG Antibody, (0.0-10.0) > 500.0 IU/mL H 06/29/24 RPR, (Nonreactive) Nonreactive 06/29/24 HIV 1&2 Ab & HIV 1 Ag, (Non-Reactiv) Non-reactive 06/29/24 TSH, (0.27-4.20) 0.97 uIU/mL 11/19/24 Free T4, (0.82-1.77) 1.02 ng/dL 11/19/24 Glucose 1 Hr 50 gm, (85-140) 181 mg/dL H 06/29/24 Gest Glucose Tolerance mg/dL 10/28/24 Uric Acid, (2.4-5.7) 5.9 mg/dL H 12/09/24 Ser , Semi-Qnt 78590.00 mIU/mL 06/01/24 HCG, Qual, (Negative) Positive H 06/01/24 Urine Opiates Screen, (Negative) Negative ng/mL 06/29/24 Ur Barbiturates Screen, (Negative) Negative ng/mL 06/29/24 Ur Phencyclidine Scrn, (Negative) Negative ng/mL 06/29/24 Ur Amphetamines Screen, (Negative) Negative ng/mL 06/29/24 U Benzodiazepines Scrn, (Negative) Negative ng/mL 06/29/24 Urine Cocaine Screen, (Negative) Negative ng/mL 06/29/24 U Marijuana (THC) Screen, (Negative) Negative ng/mL 06/29/24 Micro Urine Specimen 06/29/24 Pap Smear Interpret See note 07/07/24 Discharge Plan Discharge Patient Disposition: Home Condition: Stable Prescriptions: Continued levothyroxine 100 mcg tablet See Rx Instructions .ROUTE .COMPLEX Qty: 60 0RF Dose Instruction: TAKE 1 TABLET BY MOUTH DAILY Rx Instructions: TAKE 1 TABLET BY MOUTH DAILY ondansetron HCl 4 mg tablet 4 mg PO Q8H Qty: 30 1RF Rx Instructions: take as needed for nausea up to 3 times daily promethazine 12.5 mg tablet 12.5 mg PO TID Qty: 90 1RF Rx Instructions: take three times daily as needed for nausea [id number] 1 mg Tablet 1 tab PO DAILY Discharge Order = DC NOW: Discharge Order (Routine); Ordered 01/23/25 Ordered By: Victor M Rangel Discharge Diet: Usual diet Discharge Activity: Increase activity as tolerated Patient Instructions: Depression (DC), Bleeding (DC), Preeclampsia and Eclampsia After Delivery (GEN), Hemorrhage (DC), OB Discharge Report, OB Food/Drug Interaction Guide, OB Care at Home, Opioid Safety, OB Home Care, OB Vaginal Deliveries - [facility], Patient Portal & Km Instructions Activity Restrictions/Additional Instructions: Please call 's office on Friday to make a 4 week appointment Discharge Attestations [employer]ACHINE ADJUSTER Time Spent in Discharge Care*: less than 30 min Coding Level of Care Code Acute Code for Chg Fwd Diagnoses Vaginal delivery O80
== END 2025-01-23 13:56 | disposition home or self-care (01) | DRG 807 ==
LOC: OPOB 14:56 → OBGYN 14:56
PROVIDERS: Obstetrics & Gynecology; Admitting Provider Obstetrics & Gynecology; PCP Family Medicine; Visit Provider Obstetrics & Gynecology
DX: O48.0 Post-term pregnancy (principal); Z37.0 Single live birth; Z86.32 Personal history of gestational diabetes; Z3A.40 40 weeks gestation of pregnancy; O70.1 Second degree perineal laceration during delivery
CPT/HCPCS: 12345; 36415; 51702; 59025; 59409; 85025; 85027; 96374; 96376; 99211; J2405; J2590; J2795; J3490; J7030; J7121; J9999

== ENCOUNTER → 2025-02-23 11:30 | Outpatient (BNVA) | payer BC, SELFPAY | PROVIDERS: PCP Family Medicine; Visit Provider Obstetrics & Gynecology | DX: Z12.4 Encounter for screening for malignant neoplasm of cervix (principal) | CPT/HCPCS: 87624 ==